=== PATIENT | female | born 1950 | race Caucasian/White ===

== ENCOUNTER → 2016-11-02 | Outpatient (CLI) | payer BC ==
[~2016-11-02] MED LIST: BACL10TA PO; CALC-51 PO; CLON0.5T3 PO; DULO60CA44 PO; MIRT30TA2 PO; OMEP10CA4 PO; PENT100C6 PO; VITAMIN B PO; VITAMIN C PO; VITAMIN D PO
--- NOTE | 2016-11-02 16:34 | MAMMOGRAPHY REPORT ---
BILATERAL DIGITAL SCREENING MAMMOGRAM WITH CAD: 11/02/2016 CLINICAL HISTORY: Routine screening. The patient reported to the technologist that she has bilatera l upper outer quadrant tenderness for one year. TECHNIQUE: Current study was also evaluated with a Computer Aided Detection (CAD) system. Bilatera l CC and MLO views were obtained. COMPARISON: Comparison is made to exams dated: 10/28/2015 mammogram, 08/05/2013 mammogram, 4 mammogram, 07/24/2012 mammogram, 07/07/2011 mammogram, and 07/06/2010 mammogram - [facility]. BREAST COMPOSITION: There are scattered areas of fibroglandular density in both breasts. FINDINGS: No suspicious masses, calcifications, or areas of architectural distortion are noted in e ither breast. There has been no significant interval change compared to prior exams. Scattered bilat eral benign-appearing calcifications are not significantly changed. IMPRESSION: ACR BI-RADS CATEGORY 2: BENIGN There is no mammographic evidence of malignancy. A 1 year screening mammogram is recommended. Also recommend clinical follow-up for bilateral breast pain. The patient will receive written notificati on of the results. Approximately 10% of breast cancers are not detected with mammography. A negative mammographic repor t should not delay biopsy if a clinically suggestive mass is present. Nickie Quinn M.D. ah/:11/02/2016 14:46:09 [employer] Applications Analyst: Gisel LERNER)(Gabbie), [facility] letter sent: Normal 1/2 BI-RADS Code: ACR BI-RADS Category 2: Benign
== END | disposition home or self-care (01) ==
LOC: C.MAMM 13:44
PROVIDERS: ATTEND Obstetrics & Gynecology
DX: Z12.31 Encounter for screening mammogram for malignant neoplasm of breast (principal)

== ENCOUNTER → 2016-12-04 | Outpatient (CLI) | payer BC ==
[2016-12-04 13:08] LABS: BASO % 0.6 %; BASO ABS # 0.03 K/uL (0-0.2); COMPLETE YES; EOS % 1.2 %; HEMATOCRIT 37.1 % (37-47); IG% 0.2 %; LYMPH % 28.2 %; LYMPH ABS # 1.39 K/uL (1.2-3.4); MEAN CELL VOLUME 80.8 fL (80-100); MEAN CORPUSCULAR HEMOGLOBIN 27.5 pg (25-34); MEAN PLATELET VOLUME 9.3 fL (7.4-10.4); MONO % 8.9 %; NEUT % 60.9 %; PLATELET COUNT 271 K/uL (130-400); RED BLOOD COUNT 4.59 M/uL (4.2-5.4); WHITE BLOOD COUNT 4.93 K/uL (4.8-10.8)
[2016-12-04 13:33] LABS: ALT/SGPT 23 U/L (12-78); BLOOD UREA NITROGEN 17 mg/dl (7-18); BUN/CREATININE RATIO 21.4 (10-20); CALCIUM 9.2 mg/dl (8.5-10.1); CARBON DIOXIDE 29 mmol/L (21-32); CHLORIDE 97 mmol/L (98-107); CREATININE 0.79 mg/dl (0.60-1.20); GLUCOSE 74 mg/dl (70-99); POTASSIUM 4.3 mmol/L (3.5-5.1); SODIUM 134 mmol/L (136-145)
[2016-12-04 13:44] LABS: ALB/GLOB RATIO 0.9 (0.9-2); ALKALINE PHOSPHATASE 84 U/L (45-117); AST/SGOT 20 U/L (15-37)
== END | disposition home or self-care (01) ==
LOC: C.LAB1850 11:42
PROVIDERS: ATTEND Nurse Practitioner Adult Health
DX: Z11.59 Encounter for screening for other viral diseases (principal); K59.00 Constipation, unspecified

== ENCOUNTER → 2017-05-31 | Outpatient (CLI) | payer BC ==
[2017-05-31 14:54] LABS: URINE APPEARANCE CLEAR (CLEAR); URINE BILIRUBIN NEG (NEG); URINE COLOR DK YELLOW; URINE NITRITE NEG (NEG); URINE PH 6.5 (4.5-7.5); URINE SPECIFIC GRAVITY 1.019 (1.000-1.030); UROBILINOGEN NEG (NEG)
[2017-05-31 15:03] LABS: MANUAL MICROSCOPIC REQUIRED? NO; REVIEW REQ? NO
== END | disposition home or self-care (01) ==
LOC: C.LABSPEC 13:29
PROVIDERS: ATTEND Physician Assistant
DX: R10.2 Pelvic and perineal pain (principal)

== ENCOUNTER → 2017-07-11 | Outpatient (CLI) | payer BC ==
[2017-07-11 09:29] LABS: BASO % 0.6 %; BASO ABS # 0.03 K/uL (0-0.2); COMPLETE YES; EOS % 1.7 %; HEMATOCRIT 39.6 % (37-47); IG% 0.2 %; LYMPH % 32.1 %; LYMPH ABS # 1.49 K/uL (1.2-3.4); MEAN CELL VOLUME 83.5 fL (80-100); MEAN CORPUSCULAR HEMOGLOBIN 28.1 pg (25-34); MEAN CORPUSCULAR HGB CONC 33.6 g/dl (32-36); MONO % 7.5 %; NEUT % 57.9 %; PLATELET COUNT 271 K/uL (130-400); RED BLOOD COUNT 4.74 M/uL (4.2-5.4); WHITE BLOOD COUNT 4.64 K/uL (4.8-10.8)
[2017-07-11 09:54] LABS: ALT/SGPT 23 U/L (12-78); AST/SGOT 21 U/L (15-37); BLOOD UREA NITROGEN 14 mg/dl (7-18); BUN/CREATININE RATIO 16.6 (10-20); CARBON DIOXIDE 29 mmol/L (21-32); CHLORIDE 100 mmol/L (98-107); CREATININE 0.85 mg/dl (0.60-1.20); GLUCOSE 92 mg/dl (70-99); POTASSIUM 4.2 mmol/L (3.5-5.1); SODIUM 135 mmol/L (136-145)
[2017-07-11 09:59] LABS: ALB/GLOB RATIO 0.8 (0.9-2); ALKALINE PHOSPHATASE 87 U/L (45-117); CHOLESTEROL 224 mg/dl (0-200); CHOLESTEROL/HDL RATIO 2.8; HDL CHOLESTEROL 79 mg/dl; LDL CHOLESTEROL CALCULATED 129 mg/dl; TRIGLYCERIDES 79 mg/dl (0-150); VERY LOW DENSITY LIPOPROT CALC 16 mg/dl
== END | disposition home or self-care (01) ==
LOC: C.LAB1850 08:29
PROVIDERS: ATTEND Nurse Practitioner Adult Health
DX: E78.5 Hyperlipidemia, unspecified (principal)

== ENCOUNTER → 2017-10-08 | Outpatient (CLI) | payer BC ==
[2017-10-08 10:27] LABS: BLOOD UREA NITROGEN 13 mg/dl (7-18); CALCIUM 9.3 mg/dl (8.5-10.1); CARBON DIOXIDE 30 mmol/L (21-32); CREATININE 0.68 mg/dl (0.60-1.20); GLUCOSE 87 mg/dl (70-99); POTASSIUM 4.3 mmol/L (3.5-5.1); SODIUM 132 mmol/L (136-145)
== END | disposition home or self-care (01) ==
LOC: C.LAB1850 08:44
PROVIDERS: ATTEND Nurse Practitioner Adult Health
DX: R03.0 Elevated blood-pressure reading, without diagnosis of hypertension (principal)

== ENCOUNTER → 2017-10-25 | Outpatient (CLI) | payer BC ==
[~2017-10-25] VITALS: Ht 172.7 cm; Wt 92.0 kg
[2017-10-25 12:10] VITALS: BP 126/80; PULSE 92; Ht 172.7 cm; Wt 92.0 kg
== END | disposition home or self-care (01) ==
LOC: C.NEUR 11:20
PROVIDERS: ATTEND Internal Medicine Pulmonary Disease
DX: G47.33 Obstructive sleep apnea (adult) (pediatric) (principal); F45.8 Other somatoform disorders

== ENCOUNTER → 2017-11-08 | Outpatient (CLI) | payer BC ==
--- NOTE | 2017-11-09 14:43 | MAMMOGRAPHY REPORT ---
BILATERAL DIGITAL SCREENING MAMMOGRAM TOMOSYNTHESIS WITH CAD: 11/08/2017 CLINICAL HISTORY: Routine screening. Patient has no complaints. TECHNIQUE: Breast tomosynthesis in addition to standard 2D mammography was performed. Current study was also evaluated with a Computer Aided Detection (CAD) system. COMPARISON: Comparison is made to exams dated: 11/02/2016 mammogram, 10/28/2015 mammogram, 09/11/2014 mammogram, 08/05/2013 mammogram, 07/24/2012 mammogram, and 07/06/2010 mammogram - [facility]. BREAST COMPOSITION: There are scattered areas of fibroglandular density in both breasts. FINDINGS: There are benign calcifications in both breasts. No suspicious mass, architectural distor tion or cluster of microcalcifications is seen. IMPRESSION: ACR BI-RADS CATEGORY 2: BENIGN There is no mammographic evidence of malignancy. A 1 year screening mammogram is recommended. The pa tient will receive written notification of the results. Approximately 10% of breast cancers are not detected with mammography. A negative mammographic report should not delay biopsy if a clinically suggestive mass is present. Tiffanie Maldonado M.D. ay/:11/08/2017 19:09:43 Agronomy Professor: Lesa LEWIS(Lisandra)(Gabbie), [facility] letter sent: Normal 1/2 BI-RADS Code: ACR BI-RADS Category 2: Benign
== END | disposition home or self-care (01) ==
LOC: C.MAMM 14:04
PROVIDERS: ATTEND Obstetrics & Gynecology
DX: Z12.31 Encounter for screening mammogram for malignant neoplasm of breast (principal)

== ENCOUNTER → 2017-11-28 | Outpatient (CLI) | payer BC ==
--- NOTE | 2017-11-29 06:18 | PAP/PSG TECHNICIAN REPORT ---
[facility] Glove Boarder Polysomnogram Report Study name: None Report date: 11/29/2017 Study date: 11/28/2017 Referring Physician: Dr. Garett Ortiz DO Name: DEAN CONNORS Interpreting Physician: Garett Ortiz D.O. Date of : 1950 Glove Boarder: Lydia Larios RPS. Sex: Female Age: 67 Study Type: PSG Weight: 168 lbs Height: 67 years, Height 5' 8" BMI: 25.54 Medications: OMEPRAZOLE 20 MG, BENZONATATE 200 MG, DULOXETINE 60 MG, LINZESS 290 MCG, BACLOFEN 20 MG, CLONAZEPAM 0.5 MG, ANUSOL-HC 25 MG, LISINOPRIL 20 MG, MIRTAZAPINE 30 MG, VENTOLIN HFA, CALCIUM, CLOBETASOL 0.05%, MULTI VIT, VIT B, VIT C, VIT D, ZYRTEC Patient History 67 yr-old female here for a baseline study. She has a history of bruxism, and loud snoring. Her Holladay scale is 6. The test was started on room air. ETCO2 testing was not utilized during this study. Room 3 Parameters Monitored NPSG: E1-M2, E2-M1, Fp1-M2, Fp2-M1, F3-M2, F4-M2, F4-M1, C3-M2, C4-M2, C4-M1, O1-M2, O2-M2, O2-M1, T3-M2, T4-M1, P3-M2, P4-M1, CHIN1, CHIN2, HR, EKG, Legs, PFLOW, SNOR, FLOW, CFLOW, Tidal Volume, THOR, ABDO, SpO2, PLTH, CPRESS, ETCO2 Wave, ETCO2, pH Sleep Architecture Sleep Stages Time at Lights Off 10:43:03 PM STAGES Time (min.) TST (%) Time at Lights On 5:43:03 AM Wake 87.5 -- Total Recording Time (TRT) 420.00 min. N1 35.0 11 Total Sleep Period (TSP) 393.0 min. N2 198.5 60 Total Sleep Time (TST) 332.5min. N3 33.0 10 Awake Time 87.5 min. REM 66.0 20 Wake after Sleep Onset 60.5 min. Sleep Efficiency (SE) 79 % Sleep Onset Latency (RAQUEL) 27.0 min. Number of Stage 1 Shifts None Awakenings 18 Stage Changes 84 Number of REM periods 3 REM 66.0 20 REM Latency 218.0 min. NREM 266.5 80 Body Position Analysis Supine Right Left Side Prone Vertical Total Sleep Time (min.) 25.3 209.5 123.0 332.50 0.0 0.0 Total Sleep Time (%) 0% 63% 37% 100 0% N/A% Total Sleep Time REM (min.) 0.0 66.0 0.0 None 0.0 0.0 Total Sleep Time NREM (min.) 0.0 143.5 123.0 None 0.0 0.0 Intermittent Wake (min.) 25.3 36.8 25.4 None 0.0 0.0 Total Sleep Period (%) 0% None None None None None Arousals Myoclonus (PLM) * Events Count Index Events Count Index Spontaneous 16 3 Events Awake (PLMW) 97 66.5 Respiratory 15 2.9 Events Asleep w/ Arousal (PLMA) 14 2.5 PLM 14 3 Events Asleep w/o Arousal (PLMS) 44 7.9 Snoring 0 0 Total Asleep 58 10.5 Total 45 8 Total 155 22 Respiratory Analysis * CA OA MA CH H RERA Total Count 2 0 0 0 20 1 22 Index 0.4 0.0 0.0 0 3.6 0 4.2 Mean Duration 10.7 0.0 0.0 0.00 20.8 16.4 19.7 Longest Duration 11.4 0.0 0.0 0.00 0.0 16.4 33.4 Respiratory Event Summary Total Supine ~Supine Right Left Prone REM NREM Apneas Count 2 N/A 2 2 0 N/A 2 0 Index 0.4 N/A 0 0.6 0.0 N/A 2 0 Hypopneas (4% Desat) Count 20 N/A 20 1 19 N/A 0 20 Index 3.6 N/A 4 0.3 9.3 N/A 0.0 4.5 Apneas & All Hypopneas Count 22 N/A 22 3 19 N/A 2 20 Index 4.0 N/A 4 1 9 N/A 1.8 4.5 Respiratory Events (Tea Room Manager+All Hyp+RERA) Count 22 N/A 23 3 20 N/A 2 20 Index 4.2 N/A 4 0.9 9.8 N/A 1.8 4.7 Respiratory Related Arousal Count 15 N/A 16 1 15 N/A 0 16 Index 2.9 N/A 3 0 7 N/A 0 4 Snoring Analysis Supine Right Left Prone REM NREM Total Snore duration 2.6 min Snores count N/A 102 33 N/A 0 135 135 Snore mean duration 1.1 Sec Snores index N/A 29 16 N/A 0.0 30.4 24.4 TST with snoring (%) 0.8% Desaturation Event Summary: Minimum %SpO2 Event Count Mean/Min/Max Duration(sec.) Desaturation Index % Time In Bed > 90 66 27.0 / 5.3 / 58.8 10.3 94.5 86 - 90 4 14.4 / 10.3 / 22.8 11.0 5.4 81 - 85 0 N/A 0.0 0.2 76 - 80 0 N/A 0.0 0.0 71 - 75 0 N/A 0.0 0.0 66 - 70 0 N/A 0.0 0.0 61 - 65 0 N/A 0.0 0.0 56 - 60 0 N/A 0.0 0.0 51 - 55 0 N/A 0.0 0.0 < 50 0 N/A 0.0 0.0 Total REM NREM Awake <50% 0.0 min. 0.0 min. 0.0 min. 0.0 min. 51 - 60% 0.0 min. 0.0 min. 0.0 min. 0.0 min. 61 - 70% 0.0 min. 0.0 min. 0.0 min. 0.0 min. 71 - 80% 0.0 min. 0.0 min. 0.0 min. 0.0 min. 81 - 90% 22.5 min. 6.1 min. 7.6 min. 8.7 min. 91 - 100% 383.7 min. 59.9 min. 258.9 min. 65.0 min. Average 93 92 93 93 Minimum SpO2 83 88 86 83 Desaturation Event Index 9.7 1.8 6.8 24.7 # Desat. Events below 89% 14 N/A 11 3 Time(%) with Saturation below 89% 1.2 0.0 0.4 0.8 Time(min.) with Saturation below 89% 4.9 0.0 1.7 3.2 Time (mins) REM (mins) NREM (mins) % of TST SpO2 Below 90% 25 2 N23 1.6 SpO2 Below 88% 5 0 0 0 Heart Rate Analysis Min (bpm) Max (bpm) Average (bpm) Awake 62 92 74 NREM 65 82 73 REM 73 87 80 Overall 65 87 74 Supplemental O2 Values Minimum O2 level: None Value Start Time End Time Glove Boarder Comments Ms. Connors slept in the right and left positions. No cardiac arrhythmias or PLMs noted. No bruxism noted. Snoring was noted and scored as a 2 on a scale of 1 through 5. (0=no snoring, 5=snoring loud enough to be heard through a closed door or down the garcia way). She awoke to use the restroom two times during the night. Ms. Connors stated that she slept about the same as usual. The final report will be interpreted and signed by a sleep physician. The completed physician report will then be placed in the patient medical record. Therapy (cm H2O) 0 TIB (min.) 420.0 TST (min.) 332.5 Sleep Onset (min.) 27.0 REM Onset From Sleep (min.) 218.0 Sleep Efficiency % 79 Wakefulness (%) 21 Wakefulness (min.) 87.5 NREM 1 (%) 11 NREM 1 (min.) 35.0 NREM 2 (%) 60 NREM 2 (min.) 198.5 NREM 3 (%) 10 NREM 3 (min.) 33.0 REM (%) 20 REM (min.) 66.0 # Arousals 45 Arousal Index 8 # Snore 135 Snore Index 24.4 AHI 4.0 AHI Supine N/A AHI Non-Supine 4 NREM AHI 4.5 REM AHI 1.8 RDI 4.2 # Obstructive Apnea 0 # Central Apnea 2 # Mixed Apnea 0 # Hypopneas 20 RERAs 1 Total Respiratory Events 23 Time Below SpO2 89% (min.) 1.7 Mean NREM SpO2 (%) 93 Mean REM SpO2 (%) 92 Mean Sleep SpO2 (%) 93 Min NREM SpO2 (%) 86 Min REM SpO2 (%) 88 Position Supine (min.) 25.3 Position Non-supine (min.) 332.5 LM Index Sleep 10.5 LM Index NREM 9.2 LM Index REM 15.5 Mean Heart Rate (bpm) 74 Min Heart Rate (bpm) 65
--- NOTE | 2017-12-03 11:39 | POLYSOMNOGRAPH REPORT ---
SLEEP STUDY REPORT CLINICAL DATA: The patient is a 67-year-old female with a history of snoring, disturbed nocturnal sleep, and insomnia. Her [place] sleepiness scale score is 6. She has a history of hypertension. The patient's BMI is 25.54. This was an in-lab overnight polysomnography. SLEEP ARCHITECTURE: The total sleep period was 393 minutes. The total sleep time was 332.5 minutes. The sleep efficiency was modestly reduced to 79%. The sleep latency was mildly prolonged to 27 minutes. Wake after sleep onset was prolonged to 60.5 minutes. REM latency was prolonged to 218 minutes. There were only 2 REM periods during the night. Sleep consisted of stage N1 11%, stage N2 60%, stage N3 10%, stage REM 20%. AROUSAL DATA: The patient had a total of 45 arousals including 16 spontaneous arousals, 15 respiratory arousals, 14 PLM arousals. The arousal index was 8. PLM DATA: The patient had a total of 58 periodic limb movements of sleep for a PLM index of 10.5. There were 14 arousals associated with limb movements for a PLM arousal index of 2.5. EKG: The minimum heart rate was 65 per minute. The maximum heart rate was 87 per minute. The average heart rate was 74 per minute. No arrhythmias noted. RESPIRATORY DATA: The patient had a total of 22 respiratory events including 2 central apneas and 20 hypopneas. The longest apnea was 11.4 seconds. The mean duration of the hypopneas was 20.8 seconds. There was 1 RERA. The apnea-hypopnea index was 4.0. This would suggest no significant sleep apnea. OXIMETRY DATA: The average saturation for the night was 93%. The minimum recorded saturation was 83%, but this is felt to be artifact. There were very transient times less than 89%. FLAT SHEET MAKER COMMENTS: The patient slept in the right and left positions. No cardiac arrhythmias noted. No bruxism noted. Snoring was noted and scored as a 2 on a scale of 1 through 5. She awakened to use the restroom 2 times during the night. The patient stated that she slept about the same as usual. IMPRESSION: 1. No evidence of significant obstructive sleep apnea. 2. Primary snoring. COMMENTS: The patient did have a decrease in her sleepy efficiency. This would correlate with her history of some insomnia. There is a history of the patient taking clonazepam. It is unknown if she took this medicine before bed or not. She had a small number of respiratory events and not enough to be considered significantly abnormal. Oxygenation was not significantly abnormal. There were a mild number of limb movements. It is not clear exactly what is the underlying cause of her insomnia. It is unknown if she has any history of anxiety or depression, which may contribute to her symptoms. RECOMMENDATIONS: 1. The patient should be advised of the appropriate principles of sleep hygiene. This would include having a regular sleep-wake schedule and allowing sufficient sleep time of approximately 7.5 hours per night. 2. It would be suggested that if possible she avoid sleeping in the supine position. Typically, there were more snoring and respiratory events supine. During this study, she had relatively little time in the supine position. 3. If the snoring is a major issue for the patient, consideration could be given to an ENT evaluation.
== END | disposition home or self-care (01) ==
LOC: C.NEUR 21:00
PROVIDERS: ATTEND Internal Medicine Pulmonary Disease
DX: G47.33 Obstructive sleep apnea (adult) (pediatric) (principal); F45.8 Other somatoform disorders

== ENCOUNTER 2021-11-24 14:23 | Inpatient (IN) ==
[2021-11-24 15:06] LABS: Basophils # (auto) 0.02 K/uL (0-0.2); Basophils % (auto) 0.4 %; Eosinophils # (auto) 0.08 K/uL (0-0.5); Eosinophils % (auto) 1.4 %; Hematocrit (blood only) 39.8 % (37-47); Hemoglobin 13.2 g/dL (12.0-16.0); Lymphocytes # (auto) 1.43 K/uL (1.2-3.4); Lymphocytes % (auto) 25.1 %; Mean Corpuscular Hemoglobin 29.1 pg (25-34); Mean Corpuscular Hgb Conc 33.2 g/dL (32-36); Mean Corpuscular Volume 87.9 fL (80-100); Mean Platelet Volume 9.2 fL (7.4-10.4); Monocytes # (auto) 0.46 K/uL (0.11-0.59); Monocytes % (auto) 8.1 %; Neutrophils # (auto) 3.71 K/uL (1.4-6.5); Platelet Count 282 K/uL (130-400); RDW Coefficient of Variation 14.3 % (11.5-14.5); RDW Standard Deviation 45.8 fL (36.4-46.3); Red Blood Count 4.53 M/uL (4.2-5.4)
[2021-11-24 15:56] LABS: Alanine Aminotransferase 15 U/L (7-52); Albumin Globulin Ratio 1.3 (0.9-2); Albumin Level 4.5 gm/dl (3.4-5.0); Alkaline Phosphatase 56 U/L (34-104); Anion Gap 7 (3-11); Aspartate Aminotransferase 22 U/L (13-39); BUN Creatinine Ratio 23.2 (10-20); Bilirubin,Total 0.3 mg/dl (0.2-1.0); Blood Urea Nitrogen 19 mg/dl (6-23); Calcium 9.5 mg/dl (8.5-10.1); Carbon Dioxide 31 mmol/L (21-32); Chloride 95 mmol/L (98-107); Creatinine Clr Calc Pharmacy 60.3 ml/min; Est GFR (African American) 82.9 ml/min; Est GFR (Non-African American) 71.5 ml/min; Globulin 3.6 gm/dl (2.5-4.0); Glucose 86 mg/dl (70-99(Fasting)); Lipase 24 U/L (11-82); Potassium 4.1 mmol/L (3.5-5.1); Sodium 133 mmol/L (136-145); Total Protein 8.1 gm/dl (6.0-8.3); Troponin I < 0.03 ng/ml (0-0.04)
[2021-11-24 16:03] LABS: Partial Thromboplastin Ratio 0.9; Partial Thromboplastin Time 25.8 Seconds (21.0-31.0); Prothrombin Time 10.6 Seconds (9.0-12.0)
--- NOTE | 2021-11-24 16:14 | Electrocardiogram Report ---
Test Reason : Blood Pressure : / mmHG Vent. 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
--- NOTE | 2021-11-24 16:22 | Emergency Department Note ---
History of Present Illness General Chief complaint: Referred by Doctor Stated complaint: EKG SHOWED HEART ATTACK, CHEST HEAVINESS, PAIN Time Seen by Provider: 11/24/21 14:28 History of Present Illness Maximum Pain Intensity: 4 71-year-old female presents to the ED with a chief complaint of heaviness in her chest as well as fatigue. The patient has had the symptoms for couple of weeks. It has been getting progressively worse. It is worse with exertion. She has a little shortness of breath with it. She also reported some pain in the shoulder blades and in the left neck area. She was sent to cardiology and seen by Dr. Jalloh today. The patient was sent here for inpatient management, cardiac cath and further evaluation. His concern was that of unstable angina. The patient does have a twelve-lead EKG that was slightly abnormal although nothing acute. The patient denies any fevers or cough. No additional complaints at this time. Home Medications Medication Instructions Recorded Confirmed Type albuterol sulfate 90 mcg/actuation 1 - 2 puff INH Q4 PRN 05/10/20 11/24/21 History aerosol inhaler (Ventolin HFA) cholecalciferol (vitamin D3) 25 1,000 units PO QAM 05/10/20 11/24/21 History mcg (1,000 unit) capsule multivitamin 1 tab PO QAM 05/10/20 11/24/21 History sodium chloride 1 gram tablet 1,000 mg PO QAM 05/10/20 11/24/21 History duloxetine 60 mg capsule,delayed 60 mg PO BID #180 cap 01/19/21 11/24/21 Rx release mirtazapine 30 mg tablet 60 mg PO HS #180 tab 02/09/21 11/24/21 Rx baclofen 20 mg tablet 20 mg PO TID PRN #270 tab 06/13/21 11/24/21 Rx atorvastatin 10 mg tablet 10 mg PO QPM 07/07/21 11/24/21 History pantoprazole 40 mg tablet,delayed 40 mg PO QAM 07/07/21 11/24/21 History release hydrocortisone acetate 25 mg 25 mg WA BID PRN #100 ea 08/03/21 11/24/21 Rx rectal suppository (Anusol-HC) furosemide 20 mg tablet 20 mg PO BID #180 tab 08/08/21 11/24/21 Rx lisinopril 40 mg tablet 40 mg PO QAM #90 tab 08/08/21 11/24/21 Rx pentosan polysulfate sodium 100 mg 100 mg PO TID 90 Days #270 cap 08/08/21 11/24/21 Rx capsule (Elmiron) cyclosporine 0.05 % eye drops 1 drp OPB BID ml 10/28/21 11/24/21 History clonazepam 0.5 mg tablet 0.5 mg PO BID PRN #60 tab 11/16/21 11/24/21 Rx calcium carbonate 500 mg calcium 500 mg PO BID 11/24/21 11/24/21 History (1,250 mg) tablet mupirocin 2 % topical ointment 1 applic TOPICAL HS 11/24/21 11/24/21 History Allergies Allergy/AdvReac Type Severity Reaction Status Date / Time carbamazepine AdvReac Mild NAUSEA Verified 11/24/21 13:11 Past Med/Surg History Medical History Allergic rhinitis reason for inhaler Anxiety 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 Cardiac murmur HAS BEEN HEARD ON OCC-NO CARDIOLOGY Chronic interstitial cystitis Chronic sinusitis Degenerative cervical disc FULL ROM Depression Disc degeneration, lumbar Diverticulosis (~10/05/20) Dyspareunia Dyssynergic constipation GERD (gastroesophageal reflux disease) GERD without esophagitis Glossopharyngeal neuralgia Hoarseness of voice reason for scheduled EGD Hyperlipidemia Hypertension Obstructive sleep apnea syndrome in adult had sleep study test, was found to be "inconclusive" no device 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 Surgical History History of anesthesia reaction had spinal headache with epidural before--had to have blood patch (pt states it did work) History of colonoscopy History of esophagogastroduodenoscopy (EGD) History of laryngoscopy at ENT office in [place] 04/22/2020 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 History of right breast biopsy benign History of surgery benign mass removed in lower abdomen (pt states in the area between colon/uterus) History of wisdom tooth extraction Hx of tonsillectomy S/P Achilles tendon repair right ankle S/P hysterectomy S/P medial meniscal repair left knee Family History Grandmother (Paternal) Colon cancer Mother Lymphoma Sister TIA (transient ischemic attack) Other No family history of adverse response to anesthesia Denies family history of Ovarian cancer Prostate cancer Myocardial infarction Breast cancer Social History Smoking Status: Never smoker Second Hand Exposure: Yes (PARENT SMOKED); Hx Alcohol Use: Yes Alcohol type: wine Alcohol Intake Frequency: 2-4 x/Month Hx Substance Use: No Preferred Language: Vietnamese Communication Ability: Effective Visual Impairment: No Limitations Hearing Ability: Normal Contractor [employer] Threshing Required: No Beliefs That Will Affect Care: None marital status: Current Living Situation: Spouse current occupational status: retired current occupation: used to work as a clinical social work therapist, 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 Feels Safe at Home: Yes Childhood Exposure to Second-Hand Smoke: No Dental Care, Regularly: Yes Physical Activity Frequency: Daily Seatbelt Use: always Sunscreen Use: Yes Assistive Devices: Glasses Review of Systems A total of 10 systems reviewed and were otherwise negative Physical Exam Vital Signs Vital Signs - 24 hr 11/24/21 14:24 11/24/21 14:28 11/24/21 17:20 Temperature 36.4 C L Temperature Source Temporal Artery Scan Pulse Rate 70 70 Pulse Rate [Apical] 70 76 Pulse Rhythm Regular Regular Pulse Rhythm [Apical] Regular Regular Pulse Strength Normal Pulse Strength [Apical] Normal Normal Respiratory Rate 18 18 18 Respiratory Effort / Characteristics Non-Labored Non-Labored Spontaneous Non-Labored Respiratory Depth Normal Normal Normal Respiratory Pattern Regular Regular Regular Blood Pressure 182/108 H Blood Pressure [Left Arm] 161/84 H 160/98 H Blood Pressure Mean 132 Blood Pressure Mean [Left Arm] 109 118 Blood Pressure Position Sitting Blood Pressure Position [Left Arm] Lying Lying Pulse Oximetry 98 98 100 Oxygen Delivery Method Room Air Room Air Room Air Sepsis Recent Fever Within 48 Hours No Sepsis New/Unexplained Change in Mental Status N/A Sepsis Action Taken by Nursing No Action Required CONSTITUTIONAL/VITAL SIGNS: Reviewed / noted above. GENERAL: Non-toxic in appearance. INTEGUMENTARY: Warm, dry, and [place]. HEAD: Normocephalic. EYES: without scleral icterus or trauma. ENT/OROPHARYNX: clear and moist. LYMPHADENOPATHY/NECK: Is supple without lymphadenopathy or meningismus. RESPIRATORY: Clear to auscultation bilaterally. No increased work of breathing. CARDIOVASCULAR: Regular rate and rhythm. GI/ABDOMEN: Soft and nontender. No organomegaly or pulsatile mass. EXTREMITIES: Warm and well perfused. BACK: No CVA tenderness. NEUROLOGICAL: Intact without focal deficits. PSYCHIATRIC: normal affect. MUSCULOSKELETAL: Normally developed with good muscle tone. TRIAGE NURSING DOCUMENTATION REVIEWED. Course Administered Medications Nitroglycerin (Nitroglycerin 2% Ointment 30gm Tube) 0.5 inch EXT Q6H DARA Stop: 12/24/21 16:44 Last Admin: 11/24/21 17:10 Dose: 0.5 inch Documented by: [id number] Discontinued Medications Nitroglycerin (Nitroglycerin 2% Ointment 30gm Tube) Confirm Administered Dose 18 inch .ROUTE .[facility] ONE Stop: 11/24/21 16:49 Last Admin: 11/24/21 17:24 Dose: Not Given Documented by: [id number] Nitroglycerin (Nitroglycerin Sl 0.4 Mg/Tab Tab) Confirm Administered Dose 0.4 mg .ROUTE .[facility] ONE Stop: 11/24/21 16:50 Last Admin: 11/24/21 16:50 Dose: 0.4 mg Documented by: [id number] Medical Decision Making Differential Diagnosis The differential that was considered includes acute myocardial infarction, acute coronary syndrome, myocarditis, pericarditis, pericardial effusions /tamponade, esophageal perforation, thoracic aortic dissection, pulmonary embolism, pneumonia, pneumothorax, pancreatitis, shingles, acute cholecystitis, perforated abdominal viscus. Medical Records Attestation: I reviewed the patient's medical records. Home Medications Current Medication List: was personally reviewed by me Laboratory Data Attestation: I reviewed the patient's lab results. Result diagrams: 11/24/21 14:53 11/24/21 14:53 Lab Results 11/24/21 11/24/21 11/24/21 Range/Units 14:53 14:53 14:53 WBC 5.70 (4.8-10.8) K/uL RBC 4.53 (4.2-5.4) M/uL Hgb 13.2 (12.0-16.0) g/dL Hct 39.8 (37-47) % MCV 87.9 (80-100) fL MCH 29.1 (25-34) pg MCHC 33.2 (32-36) g/dL RDW Std Deviation 45.8 (36.4-46.3) fL RDW Coeff of Arnel 14.3 (11.5-14.5) % Plt Count 282 (130-400) K/uL MPV 9.2 (7.4-10.4) fL Immature Gran % (Auto) 0.0 % Neut % (Auto) 65.0 % Lymph % (Auto) 25.1 % [place] % (Auto) 8.1 % Eos % (Auto) 1.4 % Baso % (Auto) 0.4 % Neut # (Auto) 3.71 (1.4-6.5) K/uL Lymph # (Auto) 1.43 (1.2-3.4) K/uL [place] # (Auto) 0.46 (0.11-0.59) K/uL Eos # (Auto) 0.08 (0-0.5) K/uL Baso # (Auto) 0.02 (0-0.2) K/uL Immature Gran # (Auto) 0.00 (0.00-0.02) K/uL PT 10.6 (9.0-12.0) Seconds INR 1.0 (0.9-1.1) APTT 25.8 (21.0-31.0) Seconds PTT Ratio 0.9 Sodium 133 L (136-145) mmol/L Potassium 4.1 (3.5-5.1) mmol/L Chloride 95 L (98-107) mmol/L Carbon Dioxide 31 (21-32) mmol/L Anion Gap 7 (3-11) BUN 19 (6-23) mg/dl Creatinine 0.82 (0.6-1.2) mg/dl Est Cr Clr Drug Dosing 60.3 ml/min Est GFR ( Amer) 82.9 ml/min Est GFR (Non-Af Amer) 71.5 ml/min BUN/Creatinine Ratio 23.2 H (10-20) Glucose 86 (70-99(Fasting)) mg/dl Calcium 9.5 (8.5-10.1) mg/dl Total Bilirubin 0.3 (0.2-1.0) mg/dl AST 22 (13-39) U/L ALT 15 (7-52) U/L Alkaline Phosphatase 56 (34-104) U/L Troponin I < 0.03 (0-0.04) ng/ml Total Protein 8.1 (6.0-8.3) gm/dl Albumin 4.5 (3.4-5.0) gm/dl Globulin 3.6 (2.5-4.0) gm/dl Albumin/Globulin Ratio 1.3 (0.9-2) Lipase 24 (11-82) U/L SARS-CoV-2, RNA, NAAT (NEGATIVE) 11/24/21 Range/Units 15:09 WBC (4.8-10.8) K/uL RBC (4.2-5.4) M/uL Hgb (12.0-16.0) g/dL Hct (37-47) % MCV (80-100) fL MCH (25-34) pg MCHC (32-36) g/dL RDW Std Deviation (36.4-46.3) fL RDW Coeff of Arnel (11.5-14.5) % Plt Count (130-400) K/uL MPV (7.4-10.4) fL Immature Gran % (Auto) % Neut % (Auto) % Lymph % (Auto) % [place] % (Auto) % Eos % (Auto) % Baso % (Auto) % Neut # (Auto) (1.4-6.5) K/uL Lymph # (Auto) (1.2-3.4) K/uL [place] # (Auto) (0.11-0.59) K/uL Eos # (Auto) (0-0.5) K/uL Baso # (Auto) (0-0.2) K/uL Immature Gran # (Auto) (0.00-0.02) K/uL PT (9.0-12.0) Seconds INR (0.9-1.1) APTT (21.0-31.0) Seconds PTT Ratio Sodium (136-145) mmol/L Potassium (3.5-5.1) mmol/L Chloride (98-107) mmol/L Carbon Dioxide (21-32) mmol/L Anion Gap (3-11) BUN (6-23) mg/dl Creatinine (0.6-1.2) mg/dl Est Cr Clr Drug Dosing ml/min Est GFR ( Amer) ml/min Est GFR (Non-Af Amer) ml/min BUN/Creatinine Ratio (10-20) Glucose (70-99(Fasting)) mg/dl Calcium (8.5-10.1) mg/dl Total Bilirubin (0.2-1.0) mg/dl AST (13-39) U/L ALT (7-52) U/L Alkaline Phosphatase (34-104) U/L Troponin I (0-0.04) ng/ml Total Protein (6.0-8.3) gm/dl Albumin (3.4-5.0) gm/dl Globulin (2.5-4.0) gm/dl Albumin/Globulin Ratio (0.9-2) Lipase (11-82) U/L SARS-CoV-2, RNA, NAAT NEGATIVE (NEGATIVE) Imaging Data Radiologist's Impression: Chest X-Ray 11/24/21 14:28 XR chest 1V portable CLINICAL HISTORY: Atypical chest pain TECHNIQUE: Single frontal radiograph of the chest was obtained. Comparison: Comparison is made to chest radiograph 06/05/2008 FINDINGS: No lines and tubes are seen. The cardiomediastinal silhouette is normal. The lungs are clear. No evidence of pleural effusion or pneumothorax. IMPRESSION: No acute chest disease. ACT 112: Negative or not required by law. Electronically signed by: Win Gonzales M.D. 11/24/2021 5:24 PM ECG Data Attestation: I personally reviewed and interpreted this ECG as follows: Additional Comments: Twelve-lead EKG: Per my interpretation shows a normal sinus rhythm at a rate of 70. Poor R wave progression otherwise no ST elevations. No PVCs. Normal QTC. MDM Narrative 71-year-old female presents with symptoms concerning for unstable angina. EKG does not show any evidence of acute injury but there is poor R wave progression in the anterior leads. Blood pressure is elevated. Exam was otherwise unremarkable. Chest x-ray is negative for acute disease. EKG shows a sinus rhythm without acute ischemic changes. CBC and chemistry panel was unremarkable and a troponin was negative. The patient will be seen by the hospitalist for further inpatient evaluation and care. I did speak with Dr. Ingram from interventional cardiology. He will see the patient tomorrow for cath. Impression & Plan Angina pectoris, unstable Discharge Plan Visit Data Chief Complaint: Referred by Doctor Stated Complaint: EKG SHOWED HEART ATTACK, CHEST HEAVINESS, PAIN ED Provider: Ramirez Verdugo Discharge Problem: Angina pectoris, unstable Patient Disposition: Being Evaluated by Hospitalist Forms Stand Alone Forms: [facility] Prescriptions Prescriptions: No Action duloxetine 60 mg capsule,delayed release(DR/EC) 60 mg PO BID Qty: 180 RF: 3 mirtazapine 30 mg tablet 60 mg PO HS Qty: 180 RF: 3 baclofen 20 mg tablet 20 mg PO TID PRN (Reason: neuralgia) Qty: 270 RF: 1 hydrocortisone acetate [Anusol-HC] 25 mg suppository 25 mg WA BID PRN (Reason: Pain) Qty: 100 RF: 1 lisinopril 40 mg tablet 40 mg PO QAM Qty: 90 RF: 1 Elmiron 100 mg capsule 100 mg PO TID 90 Days Qty: 270 RF: 1 furosemide 20 mg tablet 20 mg PO BID Qty: 180 RF: 3 clonazepam 0.5 mg tablet 0.5 mg PO BID PRN (Reason: anxiety) Qty: 60 RF: 0 cyclosporine 0.05 % drops 1 drp OPB BID RF: 0 multivitamin tablet 1 tab PO QAM RF: 0 sodium chloride 1 gram tablet 1,000 mg PO QAM RF: 0 albuterol sulfate [Ventolin HFA] 90 mcg/actuation HFA aerosol inhaler 1 - 2 puff INH Q4 PRN (Reason: shortness of breath or wheezing) RF: 0 cholecalciferol (vitamin D3) 1,000 unit capsule 1,000 units PO QAM RF: 0 mupirocin 2 % ointment 1 applic topical HS RF: 0 calcium carbonate 500 mg calcium (1,250 mg) Tablet 500 mg PO BID RF: 0 atorvastatin 10 mg tablet 10 mg PO QPM RF: 0 pantoprazole 40 mg tablet,delayed release (DR/EC) 40 mg PO QAM RF: 0 Referrals Referrals: Jhoana Welsh MD [Primary Care Provider] -
--- NOTE | 2021-11-24 16:34 | History & Physical Report ---
Date of Service November 24, 2021 Assessment & Plan (1) Chest pain: Plan: Chest pain,? Unstable angina patient admitted with several days of worsening pain between her shoulder blades, extension into her left shoulder and neck, worsened with exertion and improved with rest. With hypertension. Referred to ER by cardiology. No history of CAD, DM, or tobacco use Admitting EKG: Normal sinus rhythm, no acute dynamic ST segment changes; Q waves indicative of prior CT Troponin: Negative No leukocytosis, hemoglobin normal at 13.2, creatinine 0.82 with normal baseline Troponin negative on admission Covid negative At bedside patient with worsening 6/10 pain, hypertensive to 198/98 R on recheck, 195/96 L arm. Treated with sublingual nitro followed by Nitropaste, improvement in blood pressure to 160/90s with improvement in pain. EKG without acute St changes, anterior Q waves remain present constent with prior CT. Pain improved after nitro, repeat EKG pending .Discussed with cardiology. If worsening may heparinize, defer at this time. Continue work-up as below. - Given several days of mid-scapular pain with negative troponin CTA ordered for dissection evaluation. Discussed dye load with radiology/cardiology, patient with normal renal function and should not interfere with cath tomorrow. Continue atorvastatin 10 mg every afternoon Continue lisinopril - TTE pending (2) GERD (gastroesophageal reflux disease): Plan: GERD Continue Protonix 40 mg p.o. every morning (3) Hyperlipidemia: Plan: - Continue statin (4) Hyponatremia: Plan: Hyponatremia - NaCl 1g once daily and furosemide 40mg per nephro per pt. No hx pulmonary edema or lower extremity edema. - Chronic hyponatremia followed by Dr. Brock of unclear etiology (5) Obstructive sleep apnea syndrome in adult: Plan: MERISSA - Per pt had a sleep study 'inconclusive results.' - Does not CPAP at home at night. (6) Depression: Plan: Anxiety/depression Continue mirtazapine 60 mg p.o. nightly Continue duloxetine 60 mg p.o. twice daily Continue home dosing clonazepam 0.5 mg p.o. twice daily Plan: DVT prophylaxis: Heparin Diet: Heart healthy, n.p.o. 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 She was noted to have increasing symptoms of fatigue over the last 2 months with chest heaviness and back pain with exertion gradually worsening over time and which is associated with shortness of breath. Symptoms do resolve with rest. EK11/21/[address] without acute findings. LAD? Left fascicular block She was referred for admission and catheterization by cardiology Fannie is seen in the compnay of her . Saw PCP this past Sunday for overwhelming fatigue, heavyness in her chest, pain between her shoulder blades radiating up to the neck, plus some pain in the L arm. Obtained and EKG in the office which showed some changes from several years ago, but without signs of a heart attack per pt. Was reffered to cardiology and was at her appointment today who was very concerned that she has had a heart attack in the past and that her symptoms were very concerning and would require a heart cath. She was referred to [facility] ER for further care. Pt could also not get outpatient approval for cath until Sunday, which was not felt to be safe. At time of bedside visit patient. Pain at bedside 5/10 in back/neck/shoulder blade and was a 3/10. Patient denies history of CAD/heart disease. 'At some point I might have had a murmur, but nothing conclusive.' No family history of CAD/CT. 7 siblings, none with CAD/CT. Brother had heart problems, but had/passed of extreme alcoholism. No history of diabetes No history of CKD/kidney problems GERD improved with protonix Medical History: Reviewed Medications: Reviewed Surgical History: Reviewed Allergies: Reviewed. Sensitive to Tegretol 'just makes me feel spacey and nauseus.' Social History: No former or current tobacco use. Minimal alcohol use, none recently. No recreational drug use/MM use. Code Status: Medical decision maker would be Win garcía phone #[phone]. Full Code. Allergies Allergy/AdvReac Type Severity Reaction Status Date / Time carbamazepine AdvReac Mild NAUSEA Verified 11/24/21 13:11 Home Medications Medication Instructions Recorded Confirmed Type albuterol sulfate 90 mcg/actuation 1 - 2 puff INH Q4 PRN 05/10/20 11/24/21 History aerosol inhaler (Ventolin HFA) cholecalciferol (vitamin D3) 25 1,000 units PO QAM 05/10/20 11/24/21 History mcg (1,000 unit) capsule multivitamin 1 tab PO QAM 05/10/20 11/24/21 History sodium chloride 1 gram tablet 1,000 mg PO QAM 05/10/20 11/24/21 History duloxetine 60 mg capsule,delayed 60 mg PO BID #180 cap 01/19/21 11/24/21 Rx release mirtazapine 30 mg tablet 60 mg PO HS #180 tab 02/09/21 11/24/21 Rx baclofen 20 mg tablet 20 mg PO TID PRN #270 tab 06/13/21 11/24/21 Rx atorvastatin 10 mg tablet 10 mg PO QPM 07/07/21 11/24/21 History pantoprazole 40 mg tablet,delayed 40 mg PO QAM 07/07/21 11/24/21 History release hydrocortisone acetate 25 mg 25 mg TN BID PRN #100 ea 08/03/21 11/24/21 Rx rectal suppository (Anusol-HC) furosemide 20 mg tablet 20 mg PO BID #180 tab 08/08/21 11/24/21 Rx lisinopril 40 mg tablet 40 mg PO QAM #90 tab 08/08/21 11/24/21 Rx pentosan polysulfate sodium 100 mg 100 mg PO TID 90 Days #270 cap 08/08/21 11/24/21 Rx capsule (Elmiron) cyclosporine 0.05 % eye drops 1 drp OPB BID ml 10/28/21 11/24/21 History clonazepam 0.5 mg tablet 0.5 mg PO BID PRN #60 tab 11/16/21 11/24/21 Rx calcium carbonate 500 mg calcium 500 mg PO BID 11/24/21 11/24/21 History (1,250 mg) tablet mupirocin 2 % topical ointment 1 applic TOPICAL HS 11/24/21 11/24/21 History Past Med/Surg History Medical History Allergic rhinitis reason for inhaler Anxiety 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 Cardiac murmur HAS BEEN HEARD ON OCC-NO CARDIOLOGY Chronic interstitial cystitis Chronic sinusitis Degenerative cervical disc FULL ROM Depression Disc degeneration, lumbar Diverticulosis (~10/05/20) Dyspareunia Dyssynergic constipation GERD (gastroesophageal reflux disease) GERD without esophagitis Glossopharyngeal neuralgia Hoarseness of voice reason for scheduled EGD Hyperlipidemia Hypertension Obstructive sleep apnea syndrome in adult had sleep study test, was found to be "inconclusive" no device 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 Surgical History History of anesthesia reaction had spinal headache with epidural before--had to have blood patch (pt states it did work) History of colonoscopy History of esophagogastroduodenoscopy (EGD) History of laryngoscopy at ENT office in [place] 04/22/2020 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 History of right breast biopsy benign History of surgery benign mass removed in lower abdomen (pt states in the area between colon/uterus) History of wisdom tooth extraction Hx of tonsillectomy S/P Achilles tendon repair right ankle S/P hysterectomy S/P medial meniscal repair left knee Family History Grandmother (Paternal) Colon cancer Mother Lymphoma Sister TIA (transient ischemic attack) Other No family history of adverse response to anesthesia Denies family history of Ovarian cancer Prostate cancer Myocardial infarction Breast cancer Social History Smoking Status: Never smoker Second Hand Exposure: Yes (PARENT SMOKED); Hx Alcohol Use: Yes Alcohol type: wine Alcohol Intake Frequency: 2-4 x/Month Hx Substance Use: No Preferred Language: Maltese Communication Ability: Effective Visual Impairment: No Limitations Hearing Ability: Normal Operation Agent Required: No Beliefs That Will Affect Care: None marital status: Current Living Situation: Spouse current occupational status: retired current occupation: used to work as a social science research assistant, 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 NAD. Cooperative. HEENT: Atraumatic, normocephalic. Visual acuity and hearing intact. Pupils equal and reactive to light. Pulm: CTAB A&P. -wheezes, -rales, -rhonchi. Symmetrical chest rise. No increased work of breathing. No respiratory distress. Cardiac: RRR, -mrg. Radial pulses intact and symmetrical. No JVD. No lower extremity edema. Chest pain not reproduced by palpation. Abdominal: Nontender, nondistended, soft. BS present. Extremity: Territory Outside Sales Manager strength, hip flexion, ankle dorsi/plantarflexion intact bilaterally without asymmetry. Sensation to soft touch intact in hands and feet bilaterally without asymmetry. Shoulder internal/external rotation, flexion, extension intact without exacerbation or worsening of her chest pain. Results & Data Results & Data ([facility]) Vital Signs (Past 12 Hours) Vital Signs Temp Pulse Pulse Resp BP BP Pulse Ox 11/24/21 14:28 36.4 C L 70 18 182/108 H 98 11/24/21 14:24 70 70 18 161/84 H 98 PG Care Time/CCT Total # of Minutes Spent Total Time Spent with Patient: Total time spent is greater than 50% in coordination of care (as documented) at patient's floor/unit and/or counseling patient: Coding Level of Care Code INT OBSERVATION CARE 70M LVL 3 Diagnoses Chest pain R07.9 GERD (gastroesophageal reflux disease) K21.9 Hyperlipidemia E78.5 Hyponatremia E87.1 Obstructive sleep apnea syndrome in adult G47.33 Depression F32.9
[2021-11-24] MEDS ORDERED: NITROGLYCERIN SL 0.4 MG/TAB TAB SL STA (16:40)
[2021-11-24] MEDS ORDERED: NITROGLYCERIN 2% OINTMENT 30GM TUBE ONE (16:48)
[2021-11-24] MEDS ORDERED: NITROGLYCERIN SL 0.4 MG/TAB TAB ONE (16:49)
[2021-11-24] MEDS: NITROGLYCERIN 2% OINTMENT 30GM TUBE EXT SCH ×2 (17:10→23:20)
--- NOTE | 2021-11-24 17:25 | XRay Report ---
XR chest 1V portable CLINICAL HISTORY: Atypical chest pain TECHNIQUE: Single frontal radiograph of the chest was obtained. Comparison: Comparison is made to chest radiograph 06/05/2008 FINDINGS: No lines and tubes are seen. The cardiomediastinal silhouette is normal. The lungs are clear. No evid ence of pleural effusion or pneumothorax. IMPRESSION: No acute chest disease. ACT 112: Negative or not required by law. Electronically signed by: Win Gonzales M.D. 11/24/2021 5:24 PM
[2021-11-24] MEDS ORDERED: OPTIRAY 320 125ml IV ONE (18:16)
--- NOTE | 2021-11-24 18:31 | CT Scan Report ---
CHEST CTA for AORTIC DISSECTION CT DOSE: 632.62 mGy.cm HISTORY: Atypical chest pain. r/o dissection TECHNIQUE: Multiaxial CT images of the chest were performed both before and after the intravenous adm inistration of contrast to evaluate the aorta. Maximal intensity projection images were also obtained . A dose lowering technique was utilized adhering to the principles of ALARA. COMPARISON STUDY: None. FINDINGS: Noncontrast imaging through the chest shows no evidence for an intramural hematoma within t he thoracic aorta. Mild calcified plaque within the thoracic aorta and coronary arteries. The thoraci c aorta is normal in course and caliber with no evidence for dissection. No evidence for pulmonary em bolus. The heart is normal in size. A few subcentimeter thyroid nodules. These do not meet CT criteri a for follow-up. No mediastinal or hilar lymphadenopathy. Limited views of the upper abdomen demonstr ate a normal spleen and adrenal glands. There are few cysts within the liver. Normal esophagus. No fr actures within the visualized osseous structures. No pneumothorax. The central airways are patent. Mi ld subpleural reticulation which is likely chronic. [place] II centimeter cyst within the left lower lob e. No focal lung consolidations to suggest pneumonia. IMPRESSION: 1. No evidence for an aortic dissection. 2. No evidence for pulmonary embolus. 3. Mild subpleural reticulation which is likely chronic. Otherwise, no focal lung consolidations to s uggest pneumonia. ACT 112: Negative or not required by law. Electronically signed by: Erick Dove M.D. 11/24/2021 6:30 PM
[2021-11-24] MEDS ORDERED: NITROGLYCERIN SL 0.4 MG/TAB TAB SL PRN (20:53)
[2021-11-24] MEDS ORDERED: clonazePAM 0.5 MG TAB PO PRN (20:53)
[2021-11-24] MEDS ORDERED: BACLOFEN 20 MG TAB PO PRN (20:53)
[2021-11-24] MEDS ORDERED: POLYETHYLENE (MIRALAX) 17 GM PACK PO PRN (20:53)
[2021-11-24] MEDS: DULoxetine HCL 60 MG CAP PO SCH (22:46)
[2021-11-24] MEDS: ATORVASTATIN 10 MG TAB PO SCH (22:46)
[2021-11-24] MEDS: MIRTAZAPINE TAB 15 MG TAB PO SCH (22:47)
[2021-11-24] MEDS: HEPARIN SOD 5,000 UNIT/0.5 ML VIAL SQ SCH (22:47)
[2021-11-25] MEDS ORDERED: SODIUM CHLORIDE 0.9% 1000ML 1,000 ML IV SCH
[2021-11-25] MEDS: MUPIROCIN 2% OINT 22 GM TUBE EXT SCH ×2 (02:42→20:46)
[2021-11-25 03:24] LABS: Basophils # (auto) 0.02 K/uL (0-0.2); Basophils % (auto) 0.3 %; Eosinophils # (auto) 0.09 K/uL (0-0.5); Eosinophils % (auto) 1.5 %; Hematocrit (blood only) 34.1 % (37-47); Hemoglobin 11.5 g/dL (12.0-16.0); Immature Granulocytes # (auto) 0.01 K/uL (0.00-0.02); Immature Granulocytes % (auto) 0.2 %; Lymphocytes # (auto) 1.95 K/uL (1.2-3.4); Lymphocytes % (auto) 32.8 %; Mean Corpuscular Hemoglobin 29.3 pg (25-34); Mean Corpuscular Hgb Conc 33.7 g/dL (32-36); Mean Corpuscular Volume 86.8 fL (80-100); Monocytes # (auto) 0.42 K/uL (0.11-0.59); Monocytes % (auto) 7.1 %; Neutrophils # (auto) 3.46 K/uL (1.4-6.5); Neutrophils % (auto) 58.1 %; Platelet Count 239 K/uL (130-400); RDW Coefficient of Variation 14.2 % (11.5-14.5); RDW Standard Deviation 45.4 fL (36.4-46.3); Red Blood Count 3.93 M/uL (4.2-5.4); White Blood Count 5.95 K/uL (4.8-10.8)
[2021-11-25 04:11] LABS: Anion Gap 5 (3-11); BUN Creatinine Ratio 29.1 (10-20); Blood Urea Nitrogen 23 mg/dl (6-23); Calcium 8.4 mg/dl (8.5-10.1); Carbon Dioxide 28 mmol/L (21-32); Chloride 100 mmol/L (98-107); Creatinine Clr Calc Pharmacy 62.6 ml/min; Est GFR (African American) 86.7 ml/min; Est GFR (Non-African American) 74.8 ml/min; Glucose 81 mg/dl (70-99(Fasting)); Potassium 4.2 mmol/L (3.5-5.1); Sodium 133 mmol/L (136-145); Troponin I < 0.03 ng/ml (0-0.04)
[2021-11-25] MEDS: NITROGLYCERIN 2% OINTMENT 30GM TUBE EXT SCH ×4 (06:04→22:19)
[2021-11-25] MEDS: HEPARIN SOD 5,000 UNIT/0.5 ML VIAL SQ SCH ×3 (06:13→22:19)
[2021-11-25] MEDS: MULTIVITAMIN TAB PO SCH (08:33)
[2021-11-25] MEDS: DULoxetine HCL 60 MG CAP PO SCH ×2 (08:33→20:04)
[2021-11-25] MEDS: PANTOprazole 40 MG TAB PO SCH (08:33)
[2021-11-25] MEDS: SODIUM CHLORIDE 1 GM TABLET PO SCH (08:33)
[2021-11-25] MEDS: ACETAMINOPHEN 325 MG TAB PO PRN (08:36)
[2021-11-25] MEDS ORDERED: niCARdipine HCL INJ 2.5 MG/ML 10 ML AMP ONE (09:24)
[2021-11-25] MEDS ORDERED: HEPARIN (PORCINE) 1000 UNIT/ML 10 ML (CATH LAB USE ONLY) ONE (09:24)
[2021-11-25] MEDS ORDERED: MIDAZOLAM HCL 1 MG/ML 2ML VIAL ONE (09:24)
[2021-11-25] MEDS ORDERED: NITROGLYCERIN/D5W 100MCG/ML 20ML SYR ONE (09:26)
[2021-11-25] MEDS ORDERED: fentaNYL citrate 100 MCG/2 ML VIAL ONE (09:32)
--- NOTE | 2021-11-25 10:05 | XCELERA ---
[id number]
[2021-11-25] MEDS ORDERED: LIDOCAINE 1% LOCAL 20 ML VIAL ONE (10:26)
--- NOTE | 2021-11-25 10:56 | Cardiac Catheterization ---
Cardiac Cath Procedure Full Procedure Date November 25, 2021 Pre-Procedure Diagnosis Pre-Procedure Diagnosis: Acute Coronary Syndrome AUC Score AUC Score: 08 Post-Procedure Diagnosis Post-Procedure Diagnosis: Normal Coronary Arteries Procedure(s) Performed Procedure(s) Performed: Coronary Angiography and Left Heart Cath Community Liaison Officer Redi Ingram MD, PhD Estimated Blood Loss Estimated Blood Loss: 10 ml Medication(s) Medication(s): Fentanyl, Lidocaine 1%, Nicardipine, Nitroglycerin and Versed Summary of Findings Patient was brought to the cardiac catheterization suite where she was shaved and prepped in a sterile fashion. Sedated using IV Versed and fentanyl. Soft tissues of the right wrist were anesthetized using 2 mL of 1% Xylocaine. The right radial artery was accessed using a modified Seldinger technique and a 6 [place] radial artery glide sheath was placed. Patient was provided anticoagulation with IV heparin and antispasmodics including nicardipine and nitroglycerin through the radial artery sheath. All catheters were advanced and exchanged over a 0.035 J-tip wire. Left coronary artery angiography in orthogonal views with a 5 [place] TIGR diagnostic catheter. Right coronary artery angiography in orthogonal views with a 5 [place] TIGR diagnostic catheter. Left heart cath was performed with a 5 [place] pigtail catheter. Diagnostic catheters were removed. Radial artery sheath was removed. Hemostasis was obtained using a TR band. Patient remained hemodynamically stable and asymptomatic. She was returned to the recovery area. This ended the case. Coronary angiography: LMT: Large caliber trifurcates into LAD, left circumflex, and ramus. There is no disease. LAD: This is a large caliber and transapical vessel. Proximal segment without disease. The LAD then becomes bifid with the slightly smaller septal branch providing multiple septal perforators and a large proximal septal trunk. The distal portion of this LAD branch terminates at the apex. There is no disease in this branch. The second large branch reaches and wraps the apex distally. It provides a large first diagonal branch and a medium caliber second diagonal branch. There is some small additional diagonal branches and near the apex of the LAD is very small in caliber. There is no angiographically evident disease in the LAD or its branches. Left circumflex: Large caliber and nondominant vessel which travels in the AV groove. There appears to be an ostial less than 20% stenosis. There are 2 medium to large caliber obtuse marginal branches followed by a large caliber third obtuse marginal branch. There is an early atrial branch followed by a distal atrial branch and the AV groove vessel terminates distally. There is no angiographically evident disease in the circumflex or its branches. Ramus intermedius: Small caliber vessel originating between the LAD and obtuse marginal branch. No disease. RCA: This is a large caliber and dominant vessel. The proximal and distal vessel have mild luminal irregularities. The mid RCA has more focal disease with up to 30% stenosis. The RCA bifurcates into the PDA which is medium to large in caliber and a large caliber multibranching posterior lateral. These vessels have no angiographically evident disease. Hemodynamics Rest Ao:: 126/72 mmHg, mean 98 mmHg Final Ao: 140/76 mmHg, mean 83 mmHg LV: 145/10 mmHg, LVEDP 19 mmHg Recommendations Recommendations: Medical Therapy and/or Counseling Radiation Exposure (mGy) 518 Contrast (mls) 57 Anesthesia Fentanyl, Versed Procedural Complication(s) None Disposition Return to room I attest to the content of the Intraoperative Record and any orders documented therein. Any exceptions are noted below. ACC Data: Consumer Relations Specialist Cardiac Status Clinical evaluation leading to the procedure CAD Presenation: Unstable angina Anginal Classification: CCS III Heart Failure: No Cardiogenic Shock within 24 Hours: No Cardiac Arrest within 24 Hours: No Coronary Anatomy Left Main (% Stenosis): Normal LAD (% Stenosis): Normal D1 (% Stenosis): Normal Circumflex (% Stenosis): Normal OM1 (% Stenosis): Normal OM3 (% Stenosis): Normal RCA (% Stenosis): Mid (30%) R PDA (% Stenosis): Normal R PL1 (% Stenosis): Normal Ramus (% Stenosis): Normal Diagnostic Physicians Name: Reid Ingram MD, PhD Closure Device Recommendations: Medical Therapy and/or Counseling
[2021-11-25 13:09] LABS: C Reactive Protein < 0.50 mg/dl (0-0.5); Creatine Kinase 31 U/L (26-192)
--- NOTE | 2021-11-25 16:15 | Electrocardiogram Report ---
Test Reason : Blood Pressure : / mmHG Vent. Rate : 068 BPM Atrial Rate : 068 BPM P-R Int : 138 ms QRS Dur : 094 ms QT Int : 404 ms P-R-T Axes : 048 -27 083 degrees QTc Int : 429 ms Normal sinus rhythm Possible Old Anteroseptal infarct (cited on or before 17-APR-2002) Abnormal ECG When compared with ECG of 24-NOV-2021 17:05, No significant change was found Confirmed by Alan Thomas ([id number]) on 11/25/2021 4:15:22 PM Referred By: REFERRED SELF Confirmed By:Alan Thomas
--- NOTE | 2021-11-25 16:18 | Electrocardiogram Report ---
Test Reason : Blood Pressure : / mmHG Vent. Rate : 067 BPM Atrial Rate : 067 BPM P-R Int : 146 ms QRS Dur : 098 ms QT Int : 402 ms P-R-T Axes : 067 -34 074 degrees QTc Int : 424 ms Normal sinus rhythm Left axis deviation Possible Old Anteroseptal infarct (cited on or before 17-APR-2002) Abnormal ECG When compared with ECG of 24-NOV-2021 14:36, No significant change Confirmed by Alan Thomas ([id number]) on 11/25/2021 4:18:34 PM Referred By: REFERRED SELF Confirmed By:Alan Thomas
[2021-11-25 16:55] LABS: Lyme Ab IgG w/WB Rflx Negative (Negative); Lyme Ab IgM w/WB Rflx Negative (Negative)
--- NOTE | 2021-11-25 18:03 | Hospitalist Progress Note ---
Date of Service November 25, 2021 Assessment & Plan (1) Fatigue: Plan: Her fatigue, elevated sed rate, significant posterior occipital pain, severe upper back myalgia/pain, b/l shoulder discomforts, and mild proximal thigh weakness may be c/w PMR. Her CRP is normal which is odd and argues against PMR but 5-10% of PMR cases have completely normal inflammatory markers. I cannot exclude something in the cervical spine/cervical cord contributing to her symptoms or something from the brain contributing to the clinical picture. However, my suspicion for such is low. [id number] will obtain MRI brain and MRI cervical spine. B12, CPK, TSH, Lyme - all normal/negative. Suspicion for temporal arteritis is low but not fully excluded. Due to elevated sed rate will obtain 2 sets of blood cx's, r/o bacteremia. Echo without signs of SBE. In addition to the above, will give prednisone 20mg po x 1 and see if there is a positive response with respect to her head/shoulder complaints and hip complaints along with fatigue. If there is a dramatic response with prednisone then this is likely PMR. Other possibilities would include malignancy such as multiple myeloma but CBC at time of admission was normal, total protein levels are normal, most recent u/a did not contain protein, no bone pain, no weight loss, etc. Reassess in am following the prednisone trial. (2) Elevated sedimentation rate: Plan: see above in #1 (3) Chest pain: Plan: No evidence of ACS. Echo wnl. CTA chest without PE, dissection or pneumonia. s/p heart cath today by Dr Ingram -- 30% RCA lesion, otherwise no other lesions. Thus, no obstructive CAD to explain her symptoms. This may be musculoskeletal in nature - see elevated ESR below. Can't rule out GI causes but much less likely. (4) GERD (gastroesophageal reflux disease): Plan: Continue Protonix 40 mg p.o. every morning (5) Hyperlipidemia: Plan: Continue statin LDL 85 on 10/2021 lipid panel - ideally LDL is <70 due to nonobstructive CAD CPK wnl Her constellation of symptoms are not due to chronic statin usage Will increase lipitor to 20mg HS (6) Hyponatremia: Plan: Chronic. Takes NaCl 1g once daily and furosemide 40mg daily. Follows with Dr. Brock - [facility] SIADH? Na levels here stable/acceptable. (7) Obstructive sleep apnea syndrome in adult: Plan: Does not use CPAP at home (8) Depression: Plan: Anxiety/depression Continue mirtazapine 60 mg p.o. nightly Continue duloxetine 60 mg p.o. twice daily Continue home dosing clonazepam 0.5 mg p.o. twice daily (9) Cancer of tongue: Plan: MRI brain and MRI cervical spine - look for metastatic disease but suspicion of such is very low (10) Nonobstructive atherosclerosis of coronary artery: Plan: s/p cath today L main, LAD, and Left Cx free of disease or minimal luminal irregularities RCA - mid 30% lesion only Risk factor modification Increase lipitor with goal of LDL <70 Would add aspirin 81mg daily Plan: DVT proph - heparin SC Admission and Anticipated Discharge Date Admission Date: November 24, 2021 Subjective saw patient following her heart cath she was pleased that she does not have obstructive CAD causing her recent symptoms patient reports that her main issue is that of severe fatigue/exhaustion, present x 2-3 weeks. despite sleeping well at night she wakes up feeling very tired. having to nap during the day. during this period of time she has had no loss of appetite, fevers or chills. she traveled to [place] in the last 2 weeks but felt poorly even prior to going there. no dyspnea on exertion, able to do her daily walks with her (they walk about 30 minutes each day). she reports that with walking up steps her legs feel heavy (she points to the thighs). about the time the fatigue started she also developed "headaches" of the posterior scalp/occipital region, upper back between the b/l scapula, and radia tion of these pains to both shoulders. there has been some pain radiating into the proximal left arm. no temporal headache pain. no jaw claudication. denies tick bites. they [place] in [facility] [place] 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 no recurrence to her knowledge. does report chronic paresthesias of b/l hands for months or longer. this is not a new issue for her. since admission her telemetry has been normal. Review of Systems Review of Systems: gen - no weight loss cv - chest pains have resolved/have not recurred pulm - no dyspnea GI - no abd pain - no dysuria musculo - no joint swelling or arthralgias immunology - fully vaccinated against COVID including a booster; no sick contacts skin - no rashes neuro - no paresthesias of the legs b/l Physical Exam Physical Exam: gen - NAD, pleasant neck - no palpable lymphadenopathy, no masses, no JVD; posterior neck - tender to palpation paraspinal muscles; active ROM of neck is reduced due to pain mouth - MMM, no lesions heart - RRR, s1 s2, no murmur lungs - CTA b/l abd - soft, NT, ND, BS+, no HSM ext - no edema, pulses 2+ b/l musculo - patient is able to actively move each arm (extension, flexion) but this causes pain in b/l shoulders; she is tender in the paraspinal region of the cervical and thoracic spine regions; tender over b/l shoulders to palpation; no tenderness or pain with active ROM of both hips; no synovitis of any small or large joint - upper/lower extremities skin - no rash vascular - right radial artery - band in place from recent cath Results & Data Results & Data ([facility]) Vital Signs (Past 12 Hours) Vital Signs Temp Pulse Pulse Pulse Resp BP BP 11/25/21 17:02 151/81 H 11/25/21 15:55 36.8 C 80 16 147/90 H 11/25/21 15:00 83 11/25/21 12:35 88 18 148/88 H 11/25/21 11:57 87 18 141/83 H 11/25/21 11:35 75 18 140/76 11/25/21 11:00 74 11/25/21 10:55 36.7 C 73 18 137/76 11/25/21 10:30 74 20 141/69 H 11/25/21 10:15 72 20 146/81 H 11/25/21 09:30 70 20 102/56 L 11/25/21 07:49 36.5 C 79 17 130/74 11/25/21 07:06 36.8 C 78 18 116/62 11/25/21 06:14 79 Pulse Ox 11/25/21 17:02 11/25/21 15:55 98 11/25/21 15:00 11/25/21 12:35 99 11/25/21 11:57 99 11/25/21 11:35 100 11/25/21 11:00 11/25/21 10:55 98 11/25/21 10:30 99 11/25/21 10:15 99 11/25/21 09:30 99 11/25/21 07:49 94 11/25/21 07:06 95 11/25/21 06:14 Laboratory Results Laboratory Results - last 24 hr 11/24/21 11/25/21 11/25/21 21:08 02:58 02:58 WBC 5.95 RBC 3.93 L Hgb 11.5 L Hct 34.1 L MCV 86.8 MCH 29.3 MCHC 33.7 RDW Std Deviation 45.4 RDW Coeff of Arnel 14.2 Plt Count 239 MPV 9.0 Immature Gran % (Auto) 0.2 Neut % (Auto) 58.1 Lymph % (Auto) 32.8 [place] % (Auto) 7.1 Eos % (Auto) 1.5 Baso % (Auto) 0.3 Neut # (Auto) 3.46 Lymph # (Auto) 1.95 [place] # (Auto) 0.42 Eos # (Auto) 0.09 Baso # (Auto) 0.02 Immature Gran # (Auto) 0.01 ESR Sodium 133 L Potassium 4.2 Chloride 100 Carbon Dioxide 28 Anion Gap 5 BUN 23 Creatinine 0.79 Est Cr Clr Drug Dosing 62.6 Est GFR ( Amer) 86.7 Est GFR (Non-Af Amer) 74.8 BUN/Creatinine Ratio 29.1 H Glucose 81 Calcium 8.4 L Total Creatine Kinase Troponin I < 0.03 < 0.03 C-Reactive Protein Vitamin B12 TSH Lyme Disease IgG Ab Lyme Disease IgM Ab 11/25/21 11/25/21 11/25/21 12:28 12:28 12:28 WBC RBC Hgb Hct MCV MCH MCHC RDW Std Deviation RDW Coeff of Arnel Plt Count MPV Immature Gran % (Auto) Neut % (Auto) Lymph % (Auto) [place] % (Auto) Eos % (Auto) Baso % (Auto) Neut # (Auto) Lymph # (Auto) [place] # (Auto) Eos # (Auto) Baso # (Auto) Immature Gran # (Auto) ESR 76 H Sodium Potassium Chloride Carbon Dioxide Anion Gap BUN Creatinine Est Cr Clr Drug Dosing Est GFR ( Amer) Est GFR (Non-Af Amer) BUN/Creatinine Ratio Glucose Calcium Total Creatine Kinase 31 Troponin I C-Reactive Protein < 0.50 Vitamin B12 498 TSH Lyme Disease IgG Ab Lyme Disease IgM Ab 11/25/21 11/25/21 12:28 12:28 WBC RBC Hgb Hct MCV MCH MCHC RDW Std Deviation RDW Coeff of Arnel Plt Count MPV Immature Gran % (Auto) Neut % (Auto) Lymph % (Auto) [place] % (Auto) Eos % (Auto) Baso % (Auto) Neut # (Auto) Lymph # (Auto) [place] # (Auto) Eos # (Auto) Baso # (Auto) Immature Gran # (Auto) ESR Sodium Potassium Chloride Carbon Dioxide Anion Gap BUN Creatinine Est Cr Clr Drug Dosing Est GFR ( Amer) Est GFR (Non-Af Amer) BUN/Creatinine Ratio Glucose Calcium Total Creatine Kinase Troponin I C-Reactive Protein Vitamin B12 TSH 4.379 Lyme Disease IgG Ab Negative Lyme Disease IgM Ab Negative PG Care Time/CCT Total # of Minutes Spent Total Time Spent with Patient: Total time spent is greater than 50% in coordination of care (as documented) at patient's floor/unit and/or counseling patient: Coding Level of Care Code 72338 Subseq Obs Care Lvl 3 Diagnoses Chest pain R07.9 GERD (gastroesophageal reflux disease) K21.9 Hyperlipidemia E78.5 Hyponatremia E87.1 Obstructive sleep apnea syndrome in adult G47.33 Depression F32.9 Elevated sedimentation rate R70.0 Cancer of tongue C02.9 Fatigue R53.83 Nonobstructive atherosclerosis of coronary artery I25.10
[2021-11-25] MEDS ORDERED: predniSONE 20 MG TAB PO ONE (18:30)
[2021-11-25] MEDS ORDERED: predniSONE 5 MG TAB PO ONE (18:30)
[2021-11-25] MEDS: ATORVASTATIN 10 MG TAB PO SCH (20:03)
[2021-11-25] MEDS: MIRTAZAPINE TAB 15 MG TAB PO SCH (20:03)
--- NOTE | 2021-11-25 22:02 | Magnetic Resonance Report ---
MR brain wo con HISTORY: 71 years-old Female headaches, h/o salivary gland cancer acute headache with dizziness and neck pain COMPARISON: Brain MRI 12/11/2008 TECHNIQUE: Multiplanar multisequence MRI the brain was obtained without the use of IV contrast. FINDINGS: Fuel Efficient Aircraft Designer localizer images demonstrate no gross extracranial abnormality. The midline structures appear u nremarkable. There is no restricted diffusion to suggest acute or subacute infarct. No acute intracra nial hemorrhage, midline shift, abnormal extra axial collection, hydrocephalus or intracranial mass. No pathologic blooming artifact. Moderate patchy T2/FLAIR hyperintense foci noted throughout the whit e matter which are new/progressed from prior. The cerebral venous sinuses and major arterial flow voids are patent. Mastoid air cells are clear. Mi nimal mucosal thickening of the paranasal sinuses. The skull, orbits and soft tissues are unremarkabl e. IMPRESSION: 1. No acute intracranial abnormality. 2. Moderate chronic microvascular ischemic disease has progressed from the 2009 comparison. ACT 112: Negative or not required by law. The above report was generated using voice recognition software. It may contain grammatical, syntax o r spelling errors. Electronically signed by: Dave Gotti M.D. 11/25/2021 10:01 PM
--- NOTE | 2021-11-25 23:00 | Magnetic Resonance Report ---
MR cervical spine wo con HISTORY: 71 years-old Female headaches, posterior neck pain, fatigue acute headache with fatigue and neck pain COMPARISON: Brain MRI of same day TECHNIQUE: Multiplanar multisequence MRI of the cervical spine was obtained without the use of IV con trast. FINDINGS: Assistant Shift Supervisor localizer images demonstrate no gross extraspinal abnormality. The imaged posterior fossa struc tures appear unremarkable. Signal within the cervical and imaged thoracic spinal cord appears unremar kable. C2-C3: Uncovertebral spurring with moderate facet arthrosis. No central canal or neural foraminal iain rowing. C3-C4: Uncovertebral spurring with moderate facet arthrosis. The central canal is patent. Mild to mod erate bilateral foraminal stenosis. C4-C5: Uncovertebral spurring with moderate facet arthrosis. The central canal is patent. Mild bilate ral foraminal narrowing. C5-C6: Mild intervertebral disc space narrowing with uncovertebral spurring and small posterior disc osteophyte complex with moderate facet arthrosis. No central canal or neural foraminal narrowing. C6-C7: Moderate disc space narrowing with uncovertebral spurring and small posterior disc osteophyte complex with moderate facet arthrosis. The central canal and left neural foramen are patent. Mild rig ht foraminal stenosis. 5 mm left-sided Tarlov cyst. C7-T1: Moderate facet arthrosis. No central canal or foraminal narrowing. IMPRESSION: 1. No high-grade central canal or foraminal narrowing. 2. Uncovertebral spurring with facet arthrosis as above. 3. Normal signal of the cervical spinal cord. ACT 112: Negative or not required by law. The above report was generated using voice recognition software. It may contain grammatical, syntax o r spelling errors. Electronically signed by: Dave Gotti M.D. 11/25/2021 10:58 PM
[2021-11-26] MEDS: HEPARIN SOD 5,000 UNIT/0.5 ML VIAL SQ SCH ×3 (05:01→21:16)
[2021-11-26] MEDS ORDERED: LORazepam 2 MG/1 ML VIAL IV STA (06:04)
[2021-11-26] MEDS ORDERED: LORazepam 2 MG/1 ML VIAL ONE (06:09)
[2021-11-26 06:21] LABS: BUN Creatinine Ratio 23.8 (10-20); Calcium 9.6 mg/dl (8.5-10.1); Creatinine Clr Calc Pharmacy 78.5 ml/min; Est GFR (African American) 103.9 ml/min; Est GFR (Non-African American) 89.6 ml/min
--- NOTE | 2021-11-26 06:23 | Communication Note ---
Date of Service: November 26, 2021 Notified by RN that patient was experiencing chest pain. At the bedside, patient reported feeling a squeezing-like substernal chest discomfort that radiated bilaterally to her shoulders (noted worse on the L) and up her neck. She says it had gotten better spontaneously since she first notified RN (approx. 15 minutes prior). Denies any lightheadedness, dizziness, nausea. She does say she feels quite anxious and frequently revisits the stress involved with her recent MRI. She also notes she usually takes Klonopin at home for her nerves, and hasn't use d any since arrival. On exam BP 146/85, HR 96, RR 20, SpO2 95% RA, afebrile. Anxious-appearing, but otherwise well - not diaphoretic. Cardiac-NRRR/S1 and S2 present w/o m/r/g / Pulmonary - CTAB w/o crackles or wheezes / Abdomen - soft, nontender including in the epigastrium / MSK - palpation across the chest does not recreate the pain / Extremities - no peripheral edema/unilateral leg tenderness. Newly obtained ECG does not demonstrate any new conduction or repolarization abnormalities compared to prior. Fannie's notes were reviewed, including her otherwise normal cardiac catheterization and previous reports of this chest pain. Etiology remains somewhat unclear - but in this specific case, is confounded by anxiety. MSK - ?potentially from neck, is considered. Transient coronary vasospasm also considered - though cath did not reveal any evidence of such and her ECGs are reported to be normal. Gastroesophageal seems less likely. Will trial Ativan 0.25mg x 1 now to see how this affects the pain. If unrelieved, will plan on nitro. Add troponin to AM lab. Can also consider anti-inflammatory vs. morphine. Will monitor. Plan communicated to RN. Resident Activity Tracking Resident Involvement: Resident Care Provided Care Provided: [facility]
[2021-11-26] MEDS: DULoxetine HCL 60 MG CAP PO SCH ×2 (07:59→21:17)
[2021-11-26] MEDS: SODIUM CHLORIDE 1 GM TABLET PO SCH (07:59)
[2021-11-26] MEDS: PANTOprazole 40 MG TAB PO SCH ×2 (07:59→21:18)
[2021-11-26] MEDS: MULTIVITAMIN TAB PO SCH (07:59)
--- NOTE | 2021-11-26 08:27 | Electrocardiogram Report ---
Test Reason : Blood Pressure : / mmHG Vent. Rate : 096 BPM Atrial Rate : 096 BPM P-R Int : 190 ms QRS Dur : 098 ms QT Int : 360 ms P-R-T Axes : 059 -34 097 degrees QTc Int : 454 ms Normal sinus rhythm Left axis deviation Possible Old Septal infarct (cited on or before 17-APR-2002) Abnormal ECG When compared with ECG of 24-NOV-2021 18:01, No significant change Confirmed by Alan Thomas ([id number]) on 11/26/2021 8:27:04 AM Referred By: REFERRED SELF Confirmed By:Alan Thomas
--- NOTE | 2021-11-26 10:40 | Cardiology Progress Note ---
Date of Service November 26, 2021 Assessment & Plan (1) Chest pain: (2) Nonobstructive atherosclerosis of coronary artery: (3) GERD (gastroesophageal reflux disease): Plan: Reassured patient as to the very low likelihood that her chest pain is cardiac in etiology. Would only consider coronary vasospasm if ECG shows significant ST deviation or T wave inversion during symptoms. Chest pain with radiation to back/neck/arm and patient with history of GERD occurring at night is highly suggestive of esophageal spasm, if recurrent could consider calcium channel schuyler such as diltiazem (since she also is mildly hypertensive). May also consider increasing proton pump inhibitor, but would defer to GI on this given her benign EGD results in 2019 and 2020. Although nitroglycerin will work for esophageal spasm as well, this often creates confusion for future caregivers as most patients carrying nitroglycerin have underlying significant coronary artery disease. No ongoing cardiac issues, will sign off. Please contact if any change in the patient's clinical status. Thank you. Admission and Anticipated Discharge Date Admission Date: November 24, 2021 Subjective Patient had episode of chest pain radiating to her left arm, jaw, and back this morning. Cardiac catheterization yesterday showed minor/nonobstructive CAD, ECG and troponin today were benign. She has a history of esophageal reflux and is on a proton pump inhibitor, but 2 prior EGDs showed normal esophagus. She denied any chest pain or other somatic complaints at the time of my evaluation this morning. Physical Exam Physical Exam: No distress. Afebrile. BP mildly hypertensive. Pulse 86 bpm and regular. Skin: no ecchymoses or generalized lesions. HEENT: unremarkable. Neck: no JVD or carotid bruits. Lungs: clear. Chest wall: Nontender, Cardiac: regular rhythm, no murmur or gallop. Abdomen: benign. Extremities: no edema, pulses intact. Neurologic: normal affect, nonfocal. Results & Data ([facility]) Vital Signs (Past 12 Hours) Vital Signs Temp Pulse Pulse Pulse Resp BP BP 11/26/21 07:19 97.9 F 86 16 154/87 H 11/26/21 05:45 96 H 20 146/85 H 11/26/21 03:31 97.7 F 88 18 171/90 H 11/25/21 23:36 89 Pulse Ox 11/26/21 07:19 99 11/26/21 05:45 95 11/26/21 03:31 96 11/25/21 23:36 Laboratory Results Troponin less than 0.03 Diagnostic Findings ECG showed sinus rhythm at 96 bpm with possible old septal infarct (echocardiogram did not show any wall motion abnormality), there were no dynamic ST changes compared with prior study from 11/24/2021. PG Care Time/CCT Total # of Minutes Spent Total Time Spent with Patient: Total time spent is greater than 50% in coordination of care (as documented) at patient's floor/unit and/or counseling patient: Coding Level of Care Code 42393 Subseq Hosp Care Lvl 3 Diagnoses Chest pain R07.9 Nonobstructive atherosclerosis of coronary artery I25.10 GERD (gastroesophageal reflux disease) K21.9
[2021-11-26] MEDS ORDERED: OPTIRAY 320 125ml IV ONE (11:27)
[2021-11-26] MEDS ORDERED: SODIUM CHLORIDE 0.9% 500 ML IV SCH (11:30)
[2021-11-26] MEDS: ACETAMINOPHEN 325 MG TAB PO PRN (12:39)
--- NOTE | 2021-11-26 12:43 | CT Scan Report ---
HEAD & NECK CTA HISTORY: elevated ESR, posterior neck pain; eval vertebral artery dissection TECHNIQUE: Multiaxial CT images of the head were performed following the intravenous administration o f contrast to evaluate the major cerebral vessels. Multiaxial CT images of the neck were also perform ed following the intravenous administration of contrast to evaluate the major cervical vessels. Maxim um intensity projection images were also obtained. A dose lowering technique was utilized adhering to the principles of ALARA. COMPARISON: Brain MRI 11/25/2021. FINDINGS: There is no mass, hematoma, midline shift, or acute infarct. Visualized intracranial internal carotid arteries, distal vertebral arteries, and basilar artery are widely patent. There is no significant s tenosis, occlusion, or aneurysm seen within the bilateral ACAs, MCAs, or sample checker. The major dural venous sinuses appear patent. The distal left ureter artery terminates into the left posterior inferior cer ebellar artery. Severely hypoplastic right P1 segment is noted. These are considered to be normal ligia iants. Mild calcified plaque within the bilateral carotid siphons and distal right vertebral artery. The aortic arch and proximal great vessels are patent. There is no significant stenosis, occlusion, or dissection identified within the bilateral common carotid, internal carotid, or vertebral arterie s. Heterogeneous thyroid gland containing a few subcentimeter nodules. These do not meet CT criteria for follow-up. No pneumothorax. Slightly hypoplastic left vertebral artery. Mild atherosclerotic plaq ue within the proximal left subclavian artery without significant stenosis. IMPRESSION: 1. No significant stenosis, occlusion, or aneurysm within the [place] of [place]. 2. No significant stenosis, occlusion, or dissection identified within the carotid or vertebral arter ies. ACT 112: Negative or not required by law. Electronically signed by: Erick Dove M.D. 11/26/2021 12:42 PM
--- NOTE | 2021-11-26 12:43 | CT Scan Report ---
HEAD & NECK CTA HISTORY: elevated ESR, posterior neck pain; eval vertebral artery dissection TECHNIQUE: Multiaxial CT images of the head were performed following the intravenous administration o f contrast to evaluate the major cerebral vessels. Multiaxial CT images of the neck were also perform ed following the intravenous administration of contrast to evaluate the major cervical vessels. Maxim um intensity projection images were also obtained. A dose lowering technique was utilized adhering to the principles of ALARA. COMPARISON: Brain MRI 11/25/2021. FINDINGS: There is no mass, hematoma, midline shift, or acute infarct. Visualized intracranial internal carotid arteries, distal vertebral arteries, and basilar artery are widely patent. There is no significant s tenosis, occlusion, or aneurysm seen within the bilateral ACAs, MCAs, or photo finish photographer. The major dural venous sinuses appear patent. The distal left ureter artery terminates into the left posterior inferior cer ebellar artery. Severely hypoplastic right P1 segment is noted. These are considered to be normal ligia iants. Mild calcified plaque within the bilateral carotid siphons and distal right vertebral artery. The aortic arch and proximal great vessels are patent. There is no significant stenosis, occlusion, or dissection identified within the bilateral common carotid, internal carotid, or vertebral arterie s. Heterogeneous thyroid gland containing a few subcentimeter nodules. These do not meet CT criteria for follow-up. No pneumothorax. Slightly hypoplastic left vertebral artery. Mild atherosclerotic plaq ue within the proximal left subclavian artery without significant stenosis. IMPRESSION: 1. No significant stenosis, occlusion, or aneurysm within the [place] of [place]. 2. No significant stenosis, occlusion, or dissection identified within the carotid or vertebral arter ies. ACT 112: Negative or not required by law. Electronically signed by: Erick Dove M.D. 11/26/2021 12:42 PM
[2021-11-26] MEDS ORDERED: lisinopril 20 MG TAB PO STA (13:03)
[2021-11-26] MEDS: clonazePAM 0.5 MG TAB PO SCH ×2 (14:19→21:14)
[2021-11-26] MEDS: DICLOFENAC SOD 1% GEL 100 GM TUBE EXT SCH ×2 (18:08→21:19)
--- NOTE | 2021-11-26 18:44 | Hospitalist Progress Note ---
Date of Service November 26, 2021 Assessment & Plan (1) Fatigue: Plan: Exact etiology uncertain. Initial concern yesterday of PMR (elevated ESR, posterior neck pain/headache, upper back & shoulder pain, severe fatigue, etc) - gave prednisone 20mg x 1. Unfortunately she does not feel any different today with the steroids making PMR unlikely. I do not believe she has temporal arteritis - no temporal artery tenderness, no frontal headaches, no visual changes, etc. Further, her symptoms come/go which is not typical for TA. Also, usually the CRP is elevated in TA and the most recent CRP was 0. B12, CPK, TSH, Lyme - all normal/negative. COVID testing negative. No evidence of pneumonia or UTI. Due to elevated sed rate obtained 2 sets of blood cx's to r/o bacteremia - thus far they remain negative. Echo without signs of SBE. MRI brain negative. MRI c-spine with minimal DJD. Other possibilities would include malignancy such as multiple myeloma but CBC at time of admission was normal, total protein levels are normal, most recent u/a did not contain protein, no bone pain, no weight loss, etc. Given constellation of symptoms/signs and elevated ESR will check ROSY in am. Obtain repeat ESR/CRP in am. I am uncertain why the initial ESR was high but CRP was normal. (2) Elevated sedimentation rate: Plan: see above in #1 I spoke with on-call neurology - we discussed additional w/u - will check CTA head/neck - r/o dissection (especially given posterior neck & head pain), r/o aneurysm, etc. (3) Chest pain: Plan: No evidence of ACS. Echo wnl. CTA chest without PE, dissection or pneumonia. s/p heart cath by Dr Ingram -- 30% RCA lesion, otherwise no other lesions. Thus, no obstructive CAD to explain her symptoms. Cardiology saw again today - coronary vasospasm is not suspected. Symptoms are not typical for pericarditis - in particular, her pain is NOT worsened by laying down in bed, and her chest symptoms are quite episodic and infrequent. This may be musculoskeletal in nature - see #1. This may be GERD. Plan - * increase PPI to twice daily * elevate head of bed tonight while sleeping * schedule her clonazepam BID in the event of anxiety contributing to symptoms * recheck ESR, CRP in am (4) Anxiety: Plan: rather than using clonazepam PRN will schedule BID (5) GERD (gastroesophageal reflux disease): Plan: Continue Protonix but increase to BID dosing starting today (6) Hyperlipidemia: Plan: Continue statin LDL 85 on 10/2021 lipid panel - ideally LDL is <70 due to nonobstructive CAD found on heart cath CPK wnl Her constellation of symptoms are not due to chronic statin usage Will increase lipitor to 20mg HS (7) Hyponatremia: Plan: Chronic. Takes NaCl 1g once daily and furosemide 40mg daily. Follows with Dr. Brock - [facility]. SIADH? Na levels here stable/acceptable. (8) Obstructive sleep apnea syndrome in adult: Plan: Does not use CPAP at home (9) Depression: Plan: Anxiety/depression Continue mirtazapine 60 mg p.o. nightly Continue duloxetine 60 mg p.o. twice daily Continue clonazepam but will SCHEDULE it 0.5 mg p.o. twice daily (10) Cancer of tongue: Plan: MRI brain and MRI cervical spine without evidence of metastatic disease (11) Nonobstructive atherosclerosis of coronary artery: Plan: s/p cath this admission L main, LAD, and Left Cx free of disease or minimal luminal irregularities RCA - mid 30% lesion only Risk factor modification Increase lipitor to 20mg/day with goal of LDL <70 Add aspirin 81mg daily Plan: DVT proph - heparin SC updated at bedside given her recurrent symptoms of uncertain etiology will keep overnight and re- eval in am change OBSERVATION status to FULL admit status Admission and Anticipated Discharge Date Admission Date: November 26, 2021 Subjective telemetry overnight normal including during her chest pain episode she had about 3am events of overnight - patient states she went for her MRI brain/c-spine late last night she had claustrophobia during the imaging, and wishes she had taken pre-MRI anxiety meds upon returning from MRI she was anxious, couldn't sleep, and layed in bed awake for several hours then, about 0300, she developed chest pain - this was similar to her prior episodes of chest pain that prompted this hospital admission pain radiated to L jaw and L arm she had pain in between her shoulders/scapula and upper back/neck the night resident was called very small dose of IV ativan was given within just a few minutes all of her symptoms started to dissipate she finally was able to go to sleep after the ativan this am she awoke feeling "ok" despite the prednisone yesterday she overall feels very similar to how she felt before the prednisone Review of Systems Review of Systems: gen - no fevers, no chills; good appetite cv - episode of cp - see HPI pulm - no cough, no dyspnea, no orthopnea, no HAWKINS neuro - no frontal headache; no pain over either temporal artery; no visual changes Physical Exam Physical Exam: gen - NAD, pleasant, looks good today neck - no JVD mouth - MMM, no lesions heart - RRR, s1 s2, no murmur lungs - CTA b/l chest - no reproducible chest wall pain to palpation abd - soft, NT, ND, BS+, no HSM ext - no edema, pulses 2+ b/l skin - no rash vascular - right radial artery region without any hematoma psych - affect wnl Results & Data Results & Data ([facility]) Vital Signs (Past 12 Hours) Vital Signs Temp Pulse Pulse Resp BP BP Pulse Ox 11/26/21 16:47 36.7 C 93 H 18 164/91 H 98 11/26/21 12:43 96 H 178/99 H 11/26/21 11:51 36.6 C 93 H 18 167/103 H 100 11/26/21 07:19 36.6 C 86 16 154/87 H 99 Laboratory Results Laboratory Results - last 24 hr 11/26/21 11/26/21 05:47 05:47 Sodium 132 L Potassium 4.0 Chloride 99 Carbon Dioxide 25 Anion Gap 8 BUN 15 Creatinine 0.63 Est Cr Clr Drug Dosing 78.5 Est GFR ( Amer) 103.9 Est GFR (Non-Af Amer) 89.6 BUN/Creatinine Ratio 23.8 H Glucose 112 H Calcium 9.6 Troponin I < 0.03 PG Care Time/CCT Total # of Minutes Spent Total Time Spent with Patient: Total time spent is greater than 50% in coordination of care (as documented) at patient's floor/unit and/or counseling patient: Coding Level of Care Code 40550 Subseq Hosp Care Lvl 3 Diagnoses Fatigue R53.83 Elevated sedimentation rate R70.0 Chest pain R07.9 GERD (gastroesophageal reflux disease) K21.9 Hyperlipidemia E78.5 Hyponatremia E87.1 Obstructive sleep apnea syndrome in adult G47.33 Depression F32.9 Cancer of tongue C02.9 Nonobstructive atherosclerosis of coronary artery I25.10 Anxiety F41.9
[2021-11-26] MEDS ORDERED: ATORVASTATIN 20 MG TAB PO SCH (21:00)
[2021-11-26] MEDS: MUPIROCIN 2% OINT 22 GM TUBE EXT SCH (21:13)
[2021-11-26] MEDS: lisinopril 20 MG TAB PO SCH (21:15)
[2021-11-26] MEDS: MIRTAZAPINE TAB 15 MG TAB PO SCH (21:17)
[2021-11-27] MEDS: HEPARIN SOD 5,000 UNIT/0.5 ML VIAL SQ SCH ×2 (05:49→13:05)
[2021-11-27 07:10] LABS: Anion Gap 8 (3-11); BUN Creatinine Ratio 25.7 (10-20); Blood Urea Nitrogen 18 mg/dl (6-23); C Reactive Protein < 0.50 mg/dl (0-0.5); Calcium 9.5 mg/dl (8.5-10.1); Carbon Dioxide 26 mmol/L (21-32); Chloride 98 mmol/L (98-107); Creatinine Clr Calc Pharmacy 70.6 ml/min; Est GFR (African American) 100.3 ml/min; Est GFR (Non-African American) 86.6 ml/min; Glucose 86 mg/dl (70-99(Fasting)); Potassium 3.9 mmol/L (3.5-5.1); Sodium 132 mmol/L (136-145)
--- NOTE | 2021-11-27 07:55 | Hospitalist Progress Note ---
Date of Service November 27, 2021 Assessment & Plan (1) Fatigue: Plan: Exact etiology uncertain. Initial concern yesterday of PMR (elevated ESR, posterior neck pain/headache, upper back & shoulder pain, severe fatigue, etc) - gave prednisone 20mg x 1. 11/25/21 Unfortunately did not feel any different with the steroids making PMR unlikely. I do not believe she has temporal arteritis - no temporal artery tenderness, no frontal headaches, no visual changes, etc. B12, CPK, TSH, Lyme - all normal/negative. COVID testing negative. No evidence of pneumonia or UTI. Due to elevated sed rate obtained 2 sets of blood cx's to r/o bacteremia - thus far they remain negative. Echo without signs of SBE. MRI brain negative. MRI c-spine with minimal DJD. pending ROSY, ESR had increased (2) Elevated sedimentation rate: Plan: ESR increased despite steroids (3) Chest pain: Plan: No evidence of ACS. s/p heart cath by Dr Ingram -- 30% RCA lesion, otherwise no other lesions. Echo wnl. per cardiology Symptoms are not typical for pericarditis, coronary vasospasm is not suspected. CTA chest without PE, dissection or pneumonia. Plan - * increase PPI to twice daily * elevate head of bed tonight while sleeping * schedule her clonazepam BID in the event of anxiety contributing to symptoms * (4) Anxiety: Plan: rather than using clonazepam PRN will schedule BID (5) GERD (gastroesophageal reflux disease): Plan: Continue Protonix but increase to BID dosing starting today (6) Hyperlipidemia: Plan: Continue statin LDL 85 on 10/2021 lipid panel - ideally LDL is <70 due to nonobstructive CAD found on heart cath CPK wnl Her constellation of symptoms are not due to chronic statin usage Will increase lipitor to 20mg HS (7) Hyponatremia: Plan: Chronic. Takes NaCl 1g once daily and furosemide 40mg daily. Follows with Dr. Brock - [facility] [place] [facility]. SIADH? Na levels here stable/acceptable. (8) Obstructive sleep apnea syndrome in adult: Plan: Does not use CPAP at home (9) Depression: Plan: Anxiety/depression Continue mirtazapine 60 mg p.o. nightly Continue duloxetine 60 mg p.o. twice daily Continue clonazepam but will SCHEDULE it 0.5 mg p.o. twice daily (10) Cancer of tongue: Plan: MRI brain and MRI cervical spine without evidence of metastatic disease (11) Nonobstructive atherosclerosis of coronary artery: Plan: s/p cath this admission L main, LAD, and Left Cx free of disease or minimal luminal irregularities RCA - mid 30% lesion only Risk factor modification Increase lipitor to 20mg/day with goal of LDL <70 Add aspirin 81mg daily Plan: DVT proph - heparin SC Admission and Anticipated Discharge Date Admission Date: November 26, 2021 Results & Data Results & Data ([facility]) Vital Signs (Past 12 Hours) Vital Signs Temp Pulse Pulse Resp BP BP Pulse Ox 11/27/21 07:45 98.1 F 81 17 162/86 H 100 11/27/21 03:50 97.9 F 89 19 140/85 97 11/27/21 03:06 80 11/26/21 23:18 98.1 F 80 18 132/75 96 11/26/21 21:00 11/26/21 19:41 98.1 F 81 16 175/101 H 95 Pulse Ox 11/27/21 07:45 11/27/21 03:50 11/27/21 03:06 11/26/21 23:18 11/26/21 21:00 94 11/26/21 19:41 PG Care Time/CCT Total # of Minutes Spent Total Time Spent with Patient: Total time spent is greater than 50% in coordination of care (as documented) at patient's floor/unit and/or counseling patient: Coding Diagnoses Fatigue R53.83 Elevated sedimentation rate R70.0 Chest pain R07.9 Anxiety F41.9 GERD (gastroesophageal reflux disease) K21.9 Hyperlipidemia E78.5 Hyponatremia E87.1 Obstructive sleep apnea syndrome in adult G47.33 Depression F32.9 Cancer of tongue C02.9 Nonobstructive atherosclerosis of coronary artery I25.10
[2021-11-27] MEDS: clonazePAM 0.5 MG TAB PO SCH (08:13)
[2021-11-27] MEDS: DULoxetine HCL 60 MG CAP PO SCH (08:14)
[2021-11-27] MEDS: MULTIVITAMIN TAB PO SCH (08:14)
[2021-11-27] MEDS: DICLOFENAC SOD 1% GEL 100 GM TUBE EXT SCH ×2 (08:14→13:04)
[2021-11-27] MEDS: PANTOprazole 40 MG TAB PO SCH (08:14)
[2021-11-27] MEDS: SODIUM CHLORIDE 1 GM TABLET PO SCH (08:15)
[2021-11-27] MEDS: lisinopril 20 MG TAB PO SCH (08:58)
[2021-11-27] MEDS ORDERED: ASPIRIN 81 MG ECTAB PO SCH (09:00)
--- NOTE | 2021-11-27 13:09 | Discharge Summary ---
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 She was noted to have increasing symptoms of fatigue over the last 2 months with chest heaviness and back pain with exertion gradually worsening over time and which is associated with shortness of breath. Symptoms do resolve with rest. EK11/21/2021 showed sinus anterior SC without acute findings. LAD? Left fascicular block She was referred for admission and catheterization by cardiology Fannie is seen in the compnay of her . Saw PCP this past Sunday for overwhelming fatigue, heavyness in her chest, pain between her shoulder blades radiating up to the neck, plus some pain in the L arm. Obtained and EKG in the office which showed some changes from several years ago, but without signs of a heart attack per pt. Was reffered to cardiology and was at her appointment today who was very concerned that she has had a heart attack in the past and that her symptoms were very concerning and would require a heart cath. She was referred to [facility] ER for further care. Pt could also not get outpatient approval for cath until Sunday, which was not felt to be safe. At time of bedside visit patient. Pain at bedside 5/10 in back/neck/shoulder blade and was a 3/10. Patient denies history of CAD/heart disease. 'At some point I might have had a murmur, but nothing conclusive.' No family history of CAD/SC. 7 siblings, none with CAD/SC. Brother had heart problems, but had/passed of extreme alcoholism. No history of diabetes No history of CKD/kidney problems GERD improved with protonix Medical History: Reviewed Medications: Reviewed Surgical History: Reviewed Allergies: Reviewed. Sensitive to Tegretol 'just makes me feel spacey and nauseus.' Social History: No former or current tobacco use. Minimal alcohol use, none recently. No recreational drug use/MM use. Code Status: Medical decision maker would be Win garcía phone #[phone]. Full Code. Principal Diagnosis atypical chest pain, negative left heart cath elevated ESR without defined cause possible reflux related chest symptoms Discharge Exam The patient appeared well , she says her symptoms are resolved Vital signs as documented. Neurologic exam is alert and oriented, no focal loss of strength or sensation Skin is without bruises or rashes Psychologically is without concerns for anxiety or depression. Discharge Data Allergies Allergy/AdvReac Type Severity Reaction Status Date / Time carbamazepine AdvReac Mild NAUSEA Verified 11/24/21 13:11 Consultations 11/24/21 16:41 ED Decision to Admit Stat 11/24/21 20:53 Consult Cardiology Routine Procedures Performed Operation Date: 11/25/21 09:30 Actual Procedures p Cineradiography w/Routine Exam - Reid Ingram MD, PhD p Cath, Left with Cors and Vent - Reid Ingram MD, PhD Ordered Studies Chest X-Ray 11/24/21 14:28 XR chest 1V portable FINDINGS: No lines and tubes are seen. The cardiomediastinal silhouette is normal. The lungs are clear. No evidence of pleural effusion or pneumothorax. IMPRESSION: No acute chest disease. Chest CTA 11/24/21 17:24 CHEST CTA for AORTIC DISSECTION IMPRESSION: 1. No evidence for an aortic dissection. 2. No evidence for pulmonary embolus. 3. Mild subpleural reticulation which is likely chronic. Otherwise, no focal lung consolidations to suggest pneumonia. ---- Brain MRI 11/25/21 15:53 MR brain wo con IMPRESSION: 1. No acute intracranial abnormality. 2. Moderate chronic microvascular ischemic disease has progressed from the 2008 comparison. Cervical Spine MRI 11/25/21 15:53 MR cervical spine wo con IMPRESSION: 1. No high-grade central canal or foraminal narrowing. 2. Uncovertebral spurring with facet arthrosis as above. 3. Normal signal of the cervical spinal cord. Head CTA 11/26/21 10:55 HEAD & NECK CTA IMPRESSION: 1. No significant stenosis, occlusion, or aneurysm within the [place]. 2. No significant stenosis, occlusion, or dissection identified within the carotid or vertebral arteries. Neck CTA 11/26/21 10:55 HEAD & NECK CTA HISTORY: elevated ESR, posterior neck pain; eval vertebral artery dissection IMPRESSION: 1. No significant stenosis, occlusion, or aneurysm within the [place]. 2. No significant stenosis, occlusion, or dissection identified within the carotid or vertebral arteries. Hospital Course (1) Fatigue: Exact etiology uncertain. Considered PMR (elevated ESR, posterior neck pain/headache, upper back & shoulder pain, severe fatigue, etc) - gave prednisone 20mg x 1. 11/25/21 Pt felt strongly that it made no difference Considered temporal arteritis - no temporal artery tenderness, no frontal headaches, no visual changes, etc. B12, CPK, TSH, Lyme - all normal/negative. COVID testing negative. No evidence of pneumonia or UTI. Due to elevated sed rate obtained 2 sets of blood cx's to r/o bacteremia - thus far they remain negative. Echo without signs of SBE. MRI brain negative. CTA negative MRI c-spine with minimal DJD. ESR had increased, no clinical correlation seen ROSY pending at time of discharge Symptoms resoved at time of discharge (2) Elevated sedimentation rate: ESR increased despite steroids (3) Chest pain: No evidence of ACS. s/p heart cath by Dr Ingram -- 30% RCA lesion, otherwise no other lesions. Echo wnl. per cardiology Symptoms are not typical for pericarditis, coronary vasospasm is not suspected. CTA chest without PE, dissection or pneumonia. Imporved symptoms after increase PPI to twice daily * elevate head of bed while sleeping increased clonazepam did help with sleeping (4) Anxiety: discuss further treatment with Dr Welsh or mental health profession before ascribing her to scheduled clonazepam (5) GERD (gastroesophageal reflux disease): Continue Protonix but increase to BID dosing consider 6 weeks of treatment (6) Hyperlipidemia: Continue statin LDL 85 on 10/2021 lipid panel - ideally LDL is <70 due to nonobstructive CAD found on heart cath, hesitant to increase statin with musculoskeletal pain as part of her symptoms complex, will continue to stress lifestyle and diet modification and now that CAD is ruled out try to involve exercise in outside chance that somatic complaints are fibromyalgia like CPK wnl Her constellation of symptoms are not due to chronic statin usage (7) Hyponatremia: Chronic. Takes NaCl 1g once daily and furosemide 40mg daily. Follows with Dr. Brock - [facility] [place] [facility]. Na levels here stable/acceptable. (8) Obstructive sleep apnea syndrome in adult: Does not use CPAP at home (9) Depression: Anxiety/depression Continue mirtazapine 60 mg p.o. nightly Continue duloxetine 60 mg p.o. twice daily Continue clonazepam prn (10) Cancer of tongue: MRI brain and MRI cervical spine without evidence of metastatic disease (11) Nonobstructive atherosclerosis of coronary artery: s/p cath this admission L main, LAD, and Left Cx free of disease or minimal luminal irregularities RCA - mid 30% lesion only Risk factor modification, will not add asa given are considering GI as part of symptom complex Total Time Total Time Spent Total Time Spent (In Minutes): It required greater than 30 minutes to prepare this patient for discharge Discharge Plan Discharge Items Patient Disposition: Home - Self-Care Reason For Visit: CARDIAC EVAL Discharge Diagnosis: non typical chest pain with normal cardiac workup elevated inflamation markers Activity: Resume your previous activity Non-emergency contact: Primary Care Provider Call non-emergency contact if: your symptoms worsen and you have a fever Follow-up/Referrals: Jhoana Welsh MD [Primary Care Provider] - Diet: Regular Ambulatory Orders: Comprehensive Metabolic Panel (Routine) Timeframe: 3 Days Location: Determined by Patient Ordered By: Omari Calvert Erythrocyte Sedimentation Rate (Routine) Timeframe: 3 Days Location: Determined by Patient Ordered By: Omari Calvert Addtl Attending Provider Instructions: thankfully the testing that was performed here at the hospital has not shown any concerning issues to correlate with your symptoms with the exception of elevated inflamation blood work, this will continue to be followed by your outpt providers. Your heart catherization did not show any significantly blocked coronary arteries Your heart sonogram showed a normally functioning heart without concern for infection Your MRI of your neck only showed some typical age associated arthritis, informally reviewed by our orthopedic spine surgeon, does not feel the amount of arthritis seen can explain your symptoms or is in need of intervention at this time CT angiograms of head and neck show that the large arteries suppling blood and oxygen to your brain are normal and not inflamed We will continue to monitor any pending blood work, the ROSY (antinuclear antibody) test and blood cultures are pending at the time of discharge, the cultures are preliminary negative recommend follow up with your primary care doctor, outpt blood work and possibly a Rheumatology referral Pending Studies at Discharge: Yes (ROSY (antinuclear antibody) test and blood cultures) Stand-Alone Forms: My [facility] [email or web address], Smoking Cessation Medications and DC Order Prescriptions: New diclofenac sodium [Voltaren Arthritis Pain] 1 % Gel 4 g EXT BID Qty: 100 RF: 0 Continued duloxetine 60 mg capsule,delayed release(DR/EC) 60 mg PO BID Qty: 180 RF: 3 mirtazapine 30 mg tablet 60 mg PO HS Qty: 180 RF: 3 baclofen 20 mg tablet 20 mg PO TID PRN (Reason: neuralgia) Qty: 270 RF: 1 hydrocortisone acetate [Anusol-HC] 25 mg suppository 25 mg DC BID PRN (Reason: Pain) Qty: 100 RF: 1 lisinopril 40 mg tablet 40 mg PO QAM Qty: 90 RF: 1 Elmiron 100 mg capsule 100 mg PO TID 90 Days Qty: 270 RF: 1 furosemide 20 mg tablet 20 mg PO BID Qty: 180 RF: 3 clonazepam 0.5 mg tablet 0.5 mg PO BID PRN (Reason: anxiety) Qty: 60 RF: 0 cyclosporine 0.05 % drops 1 drp OPB BID RF: 0 multivitamin tablet 1 tab PO QAM RF: 0 sodium chloride 1 gram tablet 1,000 mg PO QAM RF: 0 albuterol sulfate [Ventolin HFA] 90 mcg/actuation HFA aerosol inhaler 1 - 2 puff INH Q4 PRN (Reason: shortness of breath or wheezing) RF: 0 cholecalciferol (vitamin D3) 1,000 unit capsule 1,000 units PO QAM RF: 0 mupirocin 2 % ointment 1 applic topical HS RF: 0 calcium carbonate 500 mg calcium (1,250 mg) Tablet 500 mg PO BID RF: 0 pantoprazole 40 mg tablet,delayed release (DR/EC) 40 mg PO QAM Qty: 90 RF: 0 atorvastatin 10 mg tablet 10 mg PO QPM RF: 0 Discharge Orders: Discharge Order (Routine); Ordered 11/27/21 Ordered By: Omari Calvert Admission Data Admit Date/Time: 11/26/21 16:10 Attending Provider: Omari Calvert Admit Provider: Kamar Salgado Primary Care Provider: Jhoana Welsh Other Providers: Kamar Salgado ; Javi Rogers Coding Level of Care Code D/C DAY MANAGEMENT >30 MINS Diagnoses Fatigue R53.83 Elevated sedimentation rate R70.0 Chest pain R07.9 Anxiety F41.9 GERD (gastroesophageal reflux disease) K21.9 Hyperlipidemia E78.5 Hyponatremia E87.1 Obstructive sleep apnea syndrome in adult G47.33 Depression F32.9 Cancer of tongue C02.9 Nonobstructive atherosclerosis of coronary artery I25.10
[2021-11-29 14:38] LABS: Anti Nuclear Antibody Screen POSITIVE (NEGATIVE)
[2021-11-30 08:53] LABS: ANA Pattern Nuclear, Speckled; ANA Titer 1:40 titer
== END 2021-11-27 13:45 | disposition home or self-care (01) | DRG 392 ==
LOC: ED 14:23 → 2N 14:23 → SUATTDRO 17:37 → 2N 19:03 → 2E 11-25 11:20 → SUATTDRO 11-26 16:10